=== PATIENT | male | born 1935 | race Caucasian/White ===

== ENCOUNTER 2023-01-22 11:16 | Outpatient (CLI) | payer MEDICARE, MEDICAID, SELFPAY ==
--- NOTE | 2023-01-22 11:27 | USCV_ITS ---
Marko Shepard Age: 87 Gender: M : 1935 Exam Date: 01/22/2023 11:47 Ordering Phys: SherleyYasmeen cuellar Technologist: JOHNNY Exam Location: [facility] [place] Indication: ACUTE CHRONIC HEART FAILURE BP: 134 / 74 HR: 96 Rhythm: Atrial fibrillation Technical Quality: Adequate MEASUREMENTS (Male / Female) Normal Values 2D ECHO LVOT Diameter 2.0 cm LV Ejection Fraction MOD 2C 28.8 % LV Ejection Fraction 2C AL 29.7 % LA Diameter 3.7 cm LA Width 4.2 cm LA Height 4.8 cm RA Width 3.6 cm RA Height 4.9 cm Aorta at Sinotubular Diameter 2.2 cm IVC Diameter 1.8 cm M-MODE Aortic Annulus Diameter 3.2 cm LA Ao Ratio MM 1.2 MV E Point Septal Separation 1.8 cm DOPPLER AV Peak Velocity 130.0 cm/s LVOT Peak Velocity 68.0 cm/s AV Area Cont Eq vti 1.8 cm squared AV Area Cont Eq pk 1.6 cm squared MV Peak Velocity 156.0 cm/s MV Area PHT 3.9 cm squared MV E' Velocity 77.0 cm/s Mitral E to MV E' Ratio 16.0 Mitral E to LV E' Lateral Ratio 17.6 Mitral E to LV E' Septal Ratio 14.7 TR Peak Velocity 271.2 cm/s TR Peak Gradient 29.4 mmHg TR Mean Velocity 253.0 cm/s TR Mean Gradient 27.4 mmHg TR Velocity Time Integral 112.8 cm Right Atrial Pressure 3.0 mmHg Pulmonary Artery Systolic Pressu 32.4 mmHg PV Peak Velocity 87.0 cm/s RV Acceleration Time 0.1 s RV Ejection Time 0.3 s RV AcT/ET 0.4 FINDINGS Left Ventricle Left ventricle appears dilated. LV systolic function is severely reduced with EF of 30-35%. Severe global hypokinesis seen. Diastolic function is indeterminate because of atrial fibrillation. Right Ventricle Right ventricle is hypokinetic. Right Atrium Normal in size Left Atrium Normal in size Mitral Valve Mild mitral annular calcification. Moderate mitral regurgitation. Aortic Valve Aortic valve is thickened. No aortic stenosis seen. Tricuspid Valve Mild tricuspid regurgitation. RVSP is 40 to 45 mmHg. This is consistent with mild pulmonary hypertension. Pulmonic Valve Not well-visualized Pericardium Grossly normal Aorta Normal in size IVC Appears to be normal CONCLUSIONS LV systolic function is severely reduced with EF of 30 to 35%. Diastolic function is indeterminate because of atrial fibrillation. RV is hypokinetic. Moderate mitral regurgitation Mild tricuspid regurgitation Mild pulmonary hypertension No comparison studies are available. Benny Thao MD (Electronically Signed) Final Date: 26 January 2023 16:46 S
== END 2023-01-22 11:17 | disposition home or self-care (01) ==
LOC: RAD 11:22
PROVIDERS: PCP Nurse Practitioner Family; Visit Provider Nurse Practitioner Family
DX: I50.9 Heart failure, unspecified (principal); R06.02 Shortness of breath; I08.1 Rheumatic disorders of both mitral and tricuspid valves
CPT/HCPCS: 93306

== ENCOUNTER → 2023-02-07 09:39 | Outpatient (BNVA) | payer MEDICARE, MEDICAID, SELFPAY | PROVIDERS: PCP Nurse Practitioner Family; Visit Provider Internal Medicine Cardiovascular Disease | DX: I25.10 Atherosclerotic heart disease of native coronary artery without angina pectoris (principal); I44.0 Atrioventricular block, first degree; I13.0 Hypertensive heart and chronic kidney disease with heart failure and stage 1 through stage 4 chronic kidney disease, or unspecified chronic kidney disease; I50.9 Heart failure, unspecified; I48.91 Unspecified atrial fibrillation; N18.9 Chronic kidney disease, unspecified; E78.5 Hyperlipidemia, unspecified; Z87.891 Personal history of nicotine dependence | CPT/HCPCS: 93005; 99205 ==

== ENCOUNTER 2023-02-17 20:30 | Inpatient (IN) | payer MEDICARE, MEDICAID, SELFPAY ==
[2023-02-17] VITALS (7 sets, daily range): BP systolic 123–151; BP diastolic 70–87; PULSE 95–113; RESP 22–29; TEMP 36.4–36.6; O2SAT 95–97; BMI 25.0
--- NOTE | 2023-02-17 20:42 | ECG_ITS ---
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 Measurements Intervals [place] Rate: 112 P: 204 TX: 238 QRS: 158 QRSD: 149 T: 29 QT: 385 QTc: 528 Interpretive Statements ECTOPIC ATRIAL TACHYCARDIA WITH FIRST DEGREE AV BLOCK WITH OCCASIONAL VENTRICULAR PREMATURE COMPLEXES RIGHT AXIS DEVIATION [QRS AXIS > 100] RIGHT BUNDLE BRANCH BLOCK [120+ ms QRS DURATION, UPRIGHT V1, 40+ ms S IN I/aVL/V4/V5/V6] POSSIBLE ANTEROSEPTAL MYOCARDIAL INFARCTION , OF INDETERMINATE AGE [30 ms Q WAVE INV3/V4, OR R < 0.2 mV IN V4] Compared to ECG 02/07/2023 09:47:19 First degree AV block now present.Right.axis deviation now present Myocardial infarct finding now present Sinus tachycardia no longer present.Indeterminate axis no longer present Electronically Signed On 02-18-2023 21:31:29 CDT by Wes Vyas M.D. [id number]
--- NOTE | 2023-02-17 20:44 | XRR_ITS ---
PROCEDURE INFORMATION: Exam: XR Chest Exam date and time: 02/17/2023 9:03 PM Age: 87 years old Clinical indication: Shortness of breath; Additional info: SOB TECHNIQUE: Imaging protocol: Radiologic exam of the chest. Views: 1 view. COMPARISON: No relevant prior studies available. FINDINGS: Lungs: Bibasilar atelectasis versus minimal infiltrate. Pleural spaces: Small bilateral pleural effusions. Heart/Mediastinum: Cardiomegaly and pulmonary vascular congestion. Bones/joints: Unremarkable. XR/XR chest 1V portable [id number] IMPRESSION: 1. Small bilateral pleural effusions. 2. Cardiomegaly and pulmonary vascular congestion. 3. Bibasilar atelectasis versus minimal infiltrate.
[2023-02-17 20:53] LABS: Basophils % 0.5 %; Eosinophils # 0.1 10^3/uL (0.0-0.8); Eosinophils % 2.7 %; Hematocrit 41.2 % (42.0-52.0); Hemoglobin 13.1 g/dL (11.7-16.6); Lymphocytes # 0.5 10^3/uL (0.8-4.8); Lymphocytes % 11.4 %; Mean Corpuscular HGB Conc 31.8 g/dL (30.0-36.0); Mean Corpuscular Hemoglobin 31.3 pg (28.0-34.0); Mean Corpuscular Volume 98.3 fl (80-94); Mean Platelet Volume 12.1 fL (7.4-10.4); Monocytes # 0.9 10^3/uL (0.2-0.9); Monocytes % 21.8 %; Neutrophils # 2.56 10^3/uL (1.8-7.7); Neutrophils % 63.4 %; Nucleated Red Blood Cells % 0 %; Platelet Count 153 10^3/cmm (130-400); Red Blood Count 4.19 10^6/uL (4.1-5.3); Red Cell Distribution Width 13.9 % (12.1-15.1)
[2023-02-17 21:12] LABS: Blood Gas Allen Test Pos; Blood Gas Sample Site Radial, right; Blood Gas Sample Type Arterial
[2023-02-17 21:18] LABS: Troponin(5th) Baseline 31 ng/L (0-15)
[2023-02-17 21:26] LABS: Alanine Aminotransferase 20 U/L (0-41); Albumin Level 4.2 g/dL (3.5-5.2); Alkaline Phosphatase 86 U/L (40-130); Anion Gap 18.2 (5-19); Aspartate Amino Transferase 21 U/L (0-40); Blood Urea Nitrogen 16 mg/dL (8-23); Calcium 9.5 mg/dL (8.5-10.5); Carbon Dioxide 24 mmol/L (22-29); Chloride 99 mmol/L (98-107); Creatinine Clr Calc Pharmacy 50.0788; Globulin 2.7 g/dL (1.3-4.6); Glucose 98 mg/dL (65-115); NT Pro B Type Natriuretic Pept 5635 pg/mL (0-450); Osmolality Calculated 285 mOsm/kg (285-295); Potassium 4.2 mmol/L (3.5-5.1); Sodium 137 mmol/L (136-145); Total Bilirubin 0.4 mg/dL (0.15-1.2); Total Protein 6.9 g/dL (6.6-8.7)
--- NOTE | 2023-02-17 21:52 | ED_ITS ---
HPI - SOB/Dyspnea General: Chief Complaint: Shortness of Breath/Dyspnea Stated Complaint: SOB Time Seen by Provider: 02/17/23 20:32 History of Present Illness: HPI Narrative: 87-year-old male with complex medical history including CHF, hypertension, atrial fibrillation and coronary disease. Emergency room with increased shortness of breath within the past few days. Patient initially presented to the [facility] for shortness of breath and called 911 upon returning home. Patient reveals increased shortness of breath with walking and laying flat. Patient was seen and evaluated by spray drier operator recently and his Lasix was increased to 40 mg twice daily. He denies any chest pain at the moment no cough, coughing up blood or vomiting blood no fever or chills. No sick contacts or recent foreign travel Associated symptoms: Deny extremity pain or fever(s) Review of Systems General: Reports: 10 or more systems reviewed and unremarkable except in HPI and below Const: Denies: fever(s), chills, body aches, change in appetite, change in weight, fatigue, malaise or night sweats Resp: Reports: dyspnea; Denies: productive cough, non-productive cough, wheezing, stridor, pain on inspi ration or change in phlegm color : Denies: flank pain, difficulty urinating, dysuria, urinary frequency, urinary urgency, urinary hesitancy, urinary dribbling, difficulty starting urination or change in urine stream Musc: Denies: neck pain, back pain, extremity pain, extremity swelling, joint pain, joint swelling or joint redness PFSH ED PFSH: Medical History (Updated 02/17/23 @ 22:01 by Genia Sanon MD) Atrial fibrillation BPH (benign prostatic hyperplasia) CAD (coronary artery disease) CHF (congestive heart failure) CKD (chronic kidney disease) Depression DJD (degenerative joint disease) OPAL (generalized anxiety disorder) History of alcohol abuse History of prostate cancer History of squamous cell carcinoma HTN (hypertension) Hyperlipidemia Insomnia Surgical History (Updated 02/07/23 @ 10:11 by Latonia Garrett MD) S/P coronary angiogram S/P coronary artery stent placement Family History Brother , Age 55 Diabetes Mother , 86 y/o Myocardial infarction Other CAD (coronary artery disease) Social History Smoking and tobacco status: former smoker Physical Exam Const: COMMON NORMALS: no acute distress, average body habitus, patient oriented x3, no limitations, healthy appearing, alert and well nourished Neck/C-Spine: COMMON NORMALS: full ROM, no lymphadenopathy, supple, no meningeal signs, no JVD, Thyroid normal and No carotid bruits THYROID: Thyroid normal Chest: COMMONS NORMALS: normal inspection of the chest Resp: COMMON NORMALS: percussion normal AUSCULTATION: rales, diminished lung sounds, no bronchial breath sounds, no bronchovesicular breath sounds, no egophony, no tactile fremitus and No rub present PERCUSSION: percussion normal Cardio: COMMON NORMALS: no JVD GI: COMMON NORMALS: Normal to inspection, nondistended, normoactive bowel sounds present, Soft to palpation, non-tender, No hepatosplenomegaly present, no masses and no bruits PALPATION: Yes Soft to palpation and Yes No hepatosplenomegaly present Extremity: COMMON NORMALS: normal to inspection, full ROM and no pedal edema (Trace edema noted); negative for no joint enlargement, negative for no clubbing, cyanosis or edema and negative for no calf tenderness Neuro: COMMON NORMALS: patient oriented x3 SENSORIUM/ORIENTATION: Yes alert MENINGEAL SIGNS: Yes no meningeal signs Course Vital Signs: Vital signs: Vital Signs Temperature 98 F 02/17/23 20:32 Pulse Rate 106 H 02/17/23 22:04 Respiratory Rate 22 H 02/17/23 21:30 Blood Pressure 123/74 02/17/23 22:04 Pulse Oximetry 95 02/17/23 21:30 Oxygen Delivery Me thod Nasal Cannula 02/17/23 21:30 Oxygen Flow Rate 2 02/17/23 21:30 MDM - SOB/Dyspnea Medical Decision Making Patient was made comfortable emergency room. She was given IV Lasix. Aspirin and nitro. X-ray was done and reviewed by . Ranjana x-ray finding with the patient and family at bedside. Ranjana patient with the hospitalist and the need for admission. Differential Diagnosis Likely acute exacerbation of chronic obstructive airways disease, congestive heart failure, community acquired pneumonia, asthma with exacerbation and pulmonary embolism Lab Data 02/17/23 20:45 02/17/23 20:45 Labs/Radiology: Radiology Impressions Chest X-Ray 02/17/23 20:44 IMPRESSION: 1. Small bilateral pleural effusions. 2. Cardiomegaly and pulmonary vascular congestion. 3. Bibasilar atelectasis versus minimal infiltrate. Laboratory Results WBC 4.0 10^3/uL (4.0-10.0) 02/17/23 20:45 RBC 4.19 10^6/uL (4.1-5.3) 02/17/23 20:45 Hgb 13.1 g/dL (11.7-16.6) 02/17/23 20:45 Hct 41.2 % (42.0-52.0) L 02/17/23 20:45 MCV 98.3 fl (80-94) H 02/17/23 20:45 MCH 31.3 pg (28.0-34.0) 02/17/23 20:45 MCHC 31.8 g/dL (30.0-36.0) 02/17/23 20:45 RDW 13.9 % (12.1-15.1) 02/17/23 20:45 Plt Count 153 10^3/cmm (130-400) 02/17/23 20:45 MPV 12.1 fL (7.4-10.4) H 02/17/23 20:45 Neut % (Auto) 63.4 % 02/17/23 20:45 Lymph % (Auto) 11.4 % 02/17/23 20:45 [place] % (Auto) 21.8 % 02/17/23 20:45 Eos % (Auto) 2.7 % 02/17/23 20:45 Baso % (Auto) 0.5 % 02/17/23 20:45 Neut # (Auto) 2.56 10^3/uL (1.8-7.7) 02/17/23 20:45 Lymph # (Auto) 0.5 10^3/uL (0.8-4.8) L 02/17/23 20:45 [place] # (Auto) 0.9 10^3/uL (0.2-0.9) 02/17/23 20:45 Eos # (Auto) 0.1 10^3/uL (0.0-0.8) 02/17/23 20:45 Baso # (Auto) 0.0 10^3/uL (0.0-0.1) 02/17/23 20:45 Nucleated RBC % (auto) 0 % 02/17/23 20:45 Nucleated RBCs # 0.0 /100WBC 02/17/23 20:45 Specimen Type Arterial 02/17/23 20:44 Sample Site Radial, right 02/17/23 20:44 ABG pH 7.35 (7.35-7.45) 02/17/23 20:44 ABG pCO2 40.6 mmHg (35-45) 02/17/23 20:44 ABG pO2 66.4 mmHg (80.0-100.0) L 02/17/23 20:44 ABG HCO3 22.3 mmol/L (22-26) 02/17/23 20:44 ABG Base Excess -3.1 mmol/L (-2.0-2.0) L 02/17/23 20:44 Corona Test Pos 02/17/23 20:44 Hematocrit 28.6 % (42-52) L 02/17/23 20:44 Hgb O2 Saturation 88.3 % (95-100) L 02/17/23 20:44 Carboxyhemoglobin 0.5 %THgb (0.4-20.1) 02/17/23 20:44 Methemoglobin 2.4 % (0.4-1.5) H 02/17/23 20:44 Total Hemoglobin 9.3 g/dL (14-18) L 02/17/23 20:44 O2 Delivery Device None 02/17/23 20:44 O2 Liters/Min 2.0 % 02/17/23 20:44 FiO2 21.0 % 02/17/23 20:44 Linen Grader ID [email or web address] 02/17/23 20:44 Sodium 137 mmol/L (136-145) 02/17/23 20:45 Potassium 4.2 mmol/L (3.5-5.1) 02/17/23 20:45 Chloride 99 mmol/L (98-107) 02/17/23 20:45 Carbon Dioxide 24 mmol/L (22-29) 02/17/23 20:45 Anion Gap 18.2 (5-19) 02/17/23 20:45 BUN 16 mg/dL (8-23) 02/17/23 20:45 Creatinine 1.2 mg/dL (0.7-1.2) 02/17/23 20:45 GFR Calculation Not Reportable 02/17/23 20:45 Glucose 98 mg/dL (65-115) 02/17/23 20:45 Calculated Osmolality 285 mOsm/kg (285-295) 02/17/23 20:45 Calcium 9.5 mg/dL (8.5-10.5) 02/17/23 20:45 Total Bilirubin 0.4 mg/dL (0.15-1.2) 02/17/23 20:45 AST 21 U/L (0-40) 02/17/23 20:45 ALT 20 U/L (0-41) 02/17/23 20:45 Alkaline Phosphatase 86 U/L (40-130) 02/17/23 20:45 Troponin T Baseline 31 ng/L (0-15) H 02/17/23 20:45 NT-Pro-B Natriuret Pep 5635 pg/mL (0-450) H 02/17/23 20:45 Total Protein 6.9 g/dL (6.6-8.7) 02/17/23 20:45 Albumin 4.2 g/dL (3.5-5.2) 02/17/23 20:45 Globulin 2.7 g/dL (1.3-4.6) 02/17/23 20:45 EKG Data EKG 1: Interpretation: Tacky arrhythmia rate of 112 right bundle branch block semester and T wave changes QRS duration 149 PT 385 NM interval 238 Critical Care Time Critical Care Time: Critical Care Time: Yes Total Critical Care Time: 40 Attestation: Time spent reviewing with patient previous labs and test. Spent discussing patient with the hospitalist and family. Time spent to recheck patient and to reevaluate patient. 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
--- NOTE | 2023-02-17 22:00 | PC.NURSE ---
Notified MD that pt is not having chest pain or tightness. MD said to administer Nitro and aspirin.
[2023-02-17] MEDS: nitroglycerin 1 gm/inch oint Pkt 0.5 INCH TOPICAL (22:04)
[2023-02-17] MEDS: aspirin 325 mg Tablet PO (22:06)
--- NOTE | 2023-02-17 22:23 | PC.NURSE ---
Addendum entered by Sarita Gutiérrez RN 02/17/23 22:27: Cardiac rhythm change Original Note: Notified MD of cardiac rhythm since nitro paste administered. Asked MD if I should obtain an EKG. MD said no EKG and to leave nitro paste on. No new orders received.
[2023-02-17 22:46] LABS: ABG PCO2 40.6 mmHg (35-45); ABG PH Result 7.35 (7.35-7.45); Arterial Blood Gas Hematocrit 28.6 % (42-52); Base Excess ABG -3.1 mmol/L (-2.0-2.0); Carboxyhemoglobin 0.5 %THgb (0.4-20.1); HCO3 ABG 22.3 mmol/L (22-26); HGB O2 Sat 88.3 % (95-100); Methemoglobin 2.4 % (0.4-1.5); PO2 ABG 66.4 mmHg (80.0-100.0); Total Hemoglobin 9.3 g/dL (14-18)
[2023-02-17 23:25] LABS: Troponin 5 2HR 31.99 ng/L (0-15)
[2023-02-17 23:26] LABS: Troponin 5 2HR Delta 0.99 ABS# (0-10)
[2023-02-18] VITALS (9 sets, daily range): BP systolic 106–132; BP diastolic 54–82; PULSE 77–100; RESP 16–24; TEMP 36.4–36.6; O2SAT 94–98
--- NOTE | 2023-02-18 00:39 | PM.HP ---
Providers/Chief Complaint Admitting Physician: Janeth Jaramillo MD Primary Care Provider: Yasmeen Lepe Chief Complaint: SOB History of Present Illness Marko Shepard is a 87 year old male with PMH CAD, CHF, HTN. He recently established care with cardiology as outpatient on 02/07/23. better he has been experiencing increasing shortness of breath over the past few weeks along with lower extremity edema and exertional shortness of breath. He was recently started on Lasix and has been compliant with his treatment. It appears he was being planned for a cardiac stress test as an outpatient, this is yet to happen. Denies any fever chills cough or expectoration. He is currently on supplemental O2 at 2 L/min Review of Systems General: Reports: 10 or more systems reviewed and unremarkable except in HPI and below Const: Denies: fever(s), chills or body aches Eyes: Denies: change in vision, blurry vision or photophobia ENMT: Reports: hoarseness; Denies: throat pain, enlarged tonsils, odynophagia or nasal congestion Card: Denies: chest pain, palpitations, irregular heart rhythm, edema, swelling of feet/ankles, lightheadedness, pre-syncope, dyspnea on exertion or orthopnea Resp: Denies: dyspnea, productive cough, non-productive cough, wheezing, stridor, pain on inspiration, change in phlegm color, hemoptysis or chest congestion GI: Denies: abdominal pain, nausea, vomiting, hematemesis, coffee ground emesis, dysphagia, heartburn, diarrhea, constipation, GI cramping, change in stool character, hematochezia or melena : Denies: flank pain, dysuria, urinary frequency, urinary urgency, urinary hesitancy or hematuria Musc: Denies: neck pain, back pain, extremity pain, joint swelling, joint warmth or deformity Neuro: Denies: headache(s), numbness in extremities, weakness in extremities, sensory changes, difficulty walking, frequent falls, dizziness, vertigo, behavioral changes, Slurred speech present or seizure-like activity Psych: Denies: anxiety, depression, suicidal ideation or homicidal ideation Endo: Denies: polyuria, polydipsia, tired all the time, cold intolerance or hot flashes Gera/Lymph: Denies: easy bruising or easy bleeding Medications/Allergies Home Medications Medication Instructions Recorded Confirmed Last Taken Type albuterol sulfate 90 mcg/actuation 2 puff inhalation Q6H PRN 02/07/23 Unknown History aerosol inhaler alprazolam 0.25 mg tablet 0.25 mg PO BID PRN 02/07/23 Unknown History aspirin 81 mg tablet,delayed 81 mg PO DAILY 02/07/23 Unknown History release (Adult Low Dose Aspirin) cetirizine 10 mg tablet (Allergy 10 mg PO DAILY PRN 02/07/23 Unknown History Relief (cetirizine)) diltiazem HCl 30 mg tablet 30 mg PO TID PRN 02/07/23 Unknown History fluticasone propionate 50 1 spray intranasal DAILY PRN 02/07/23 02/17/23 Unknown History mcg/actuation nasal Allergy Symptoms spray,suspension (Flonase Allergy Relief) furosemide 40 mg tablet 40 mg PO DIRECTED #90 tabs 02/07/23 02/17/23 Unknown Rx latanoprost 0.005 % eye drops 1 drp ophthalmic (eye) DAILY 02/07/23 02/17/23 Unknown History meloxicam 15 mg tablet 15 mg PO DAILY 02/07/23 02/17/23 Unknown History multivitamin 1 tab PO DAILY 02/07/23 02/17/23 Unknown History potassium chloride 20 mEq 20 meq PO DIRECTED #90 tabs 02/07/23 02/17/23 Unknown Rx tablet,extended release tamsulosin 0.4 mg capsule 0.8 mg PO DAILY 02/07/23 02/17/23 Unknown History vit C 226 mg-vit E 90 mg-copper 1 cap PO DAILY 02/07/23 02/17/23 Unknown History 0.8 mg-zinc oxide-lutein 5 mg capsule (PreserVision Lutein) Allergies Allergy/AdvReac Type Severity Reaction Status Date / Time celecoxib Allergy Unknown Unknown Verified 02/07/23 07:40 cholestyramine Allergy Unknown Unknown Verified 02/07/23 07:40 doxepin Allergy Unknown Unknown Verified 02/07/23 07:40 ezetimibe Allergy Unknown Unknown Verified 02/07/23 07:40 metaxalone Allergy Unknown Unknown Verified 02/07/23 07:40 niacin Allergy Unknown Unknown Verified 02/07/23 07:40 simvastatin Allergy Unknown Unknown Verified 02/07/23 07:40 alirocumab AdvReac Mild ADV-Weaknes Verified 02/07/23 07:40 s evolocumab AdvReac Mild ADV-Weaknes Verified 02/07/23 07:40 s rosuvastatin AdvReac Mild ADR-Cramping Verified 02/07/23 07:40 of the Muscles PFSH Acute PFSH: Medical History Atrial fibrillation BPH (benign prostatic hyperplasia) CAD (coronary artery disease) CHF (congestive heart failure) CKD (chronic kidney disease) Depression DJD (degenerative joint disease) OPAL (generalized anxiety disorder) History of alcohol abuse History of prostate cancer History of squamous cell carcinoma HTN (hypertension) Hyperlipidemia Insomnia Surgical History S/P coronary angiogram S/P coronary artery stent placement Family History Brother , Age 55 Diabetes Mother , 86 y/o Myocardial infarction Other CAD (coronary artery disease) Social History Smoking and tobacco status: former smoker Vitals/I&O/Wt Last Vital Signs Temp 97.6 F 02/17/23 23:15 Pulse 95 02/17/23 23:15 Resp 25 H 02/17/23 23:15 BP 151/83 02/17/23 23:15 Pulse Ox 97 02/17/23 23:15 O2 Del Method Nasal Cannula 02/17/23 23:15 O2 Flow Rate 2 02/17/23 23:15 Weight last 48 hrs Weight 83.915 kg Physical Exam Narrative: General: No acute distress, AO x3 HEENT: PERRLA, pupils bilaterally equal and reactive, pallors not present Chest: Rales to auscultation B/L CVS: S1-S2 regular, no murmurs, no tachycardia, no gallops, no rubs Abdomen: Soft, nontender, no organomegaly, bowel sounds present Neuro: No focal deficits, no facial deformity, AO x3, power 5/5 in all limbs Data 02/17/23 20:45 02/17/23 20:45 Other Labs: Radiology Impressions Chest X-Ray 02/17/23 20:44 IMPRESSION: 1. Small bilateral pleural effusions. 2. Cardiomegaly and pulmonary vascular congestion. 3. Bibasilar atelectasis versus minimal infiltrate. Laboratory Results WBC 4.0 10^3/uL (4.0-10.0) 02/17/23 20:45 RBC 4.19 10^6/uL (4.1-5.3) 02/17/23 20:45 Hgb 13.1 g/dL (11.7-16.6) 02/17/23 20:45 Hct 41.2 % (42.0-52.0) L 02/17/23 20:45 MCV 98.3 fl (80-94) H 02/17/23 20:45 MCH 31.3 pg (28.0-34.0) 02/17/23 20:45 MCHC 31.8 g/dL (30.0-36.0) 02/17/23 20:45 RDW 13.9 % (12.1-15.1) 02/17/23 20:45 Plt Count 153 10^3/cmm (130-400) 02/17/23 20:45 MPV 12.1 fL (7.4-10.4) H 02/17/23 20:45 Neut % (Auto) 63.4 % 02/17/23 20:45 Lymph % (Auto) 11.4 % 02/17/23 20:45 [place] % (Auto) 21.8 % 02/17/23 20:45 Eos % (Auto) 2.7 % 02/17/23 20:45 Baso % (Auto) 0.5 % 02/17/23 20:45 Neut # (Auto) 2.56 10^3/uL (1.8-7.7) 02/17/23 20:45 Lymph # (Auto) 0.5 10^3/uL (0.8-4.8) L 02/17/23 20:45 [place] # (Auto) 0.9 10^3/uL (0.2-0.9) 02/17/23 20:45 Eos # (Auto) 0.1 10^3/uL (0.0-0.8) 02/17/23 20:45 Baso # (Auto) 0.0 10^3/uL (0.0-0.1) 02/17/23 20:45 Nucleated RBC % (auto) 0 % 02/17/23 20:45 Nucleated RBCs # 0.0 /100WBC 02/17/23 20:45 Specimen Type Arterial 02/17/23 20:44 Sample Site Radial, right 02/17/23 20:44 ABG pH 7.35 (7.35-7.45) 02/17/23 20:44 ABG pCO2 40.6 mmHg (35-45) 02/17/23 20:44 ABG pO2 66.4 mmHg (80.0-100.0) L 02/17/23 20:44 ABG HCO3 22.3 mmol/L (22-26) 02/17/23 20:44 ABG Base Excess -3.1 mmol/L (-2.0-2.0) L 02/17/23 20:44 Corona Test Pos 02/17/23 20:44 Hematocrit 28.6 % (42-52) L 02/17/23 20:44 Hgb O2 Saturation 88.3 % (95-100) L 02/17/23 20:44 Carboxyhemoglobin 0.5 %THgb (0.4-20.1) 02/17/23 20:44 Methemoglobin 2.4 % (0.4-1.5) H 02/17/23 20:44 Total Hemoglobin 9.3 g/dL (14-18) L 02/17/23 20:44 O2 Delivery Device None 02/17/23 20:44 O2 Liters/Min 2.0 % 02/17/23 20:44 FiO2 21.0 % 02/17/23 20:44 Case Making Machine Operator ID [email or web address] 02/17/23 20:44 Sodium 137 mmol/L (136-145) 02/17/23 20:45 Potassium 4.2 mmol/L (3.5-5.1) 02/17/23 20:45 Chloride 99 mmol/L (98-107) 02/17/23 20:45 Carbon Dioxide 24 mmol/L (22-29) 02/17/23 20:45 Anion Gap 18.2 (5-19) 02/17/23 20:45 BUN 16 mg/dL (8-23) 02/17/23 20:45 Creatinine 1.2 mg/dL (0.7-1.2) 02/17/23 20:45 GFR Calculation Not Reportable 02/17/23 20:45 Glucose 98 mg/dL (65-115) 02/17/23 20:45 Calculated Osmolality 285 mOsm/kg (285-295) 02/17/23 20:45 Calcium 9.5 mg/dL (8.5-10.5) 02/17/23 20:45 Total Bilirubin 0.4 mg/dL (0.15-1.2) 02/17/23 20:45 AST 21 U/L (0-40) 02/17/23 20:45 ALT 20 U/L (0-41) 02/17/23 20:45 Alkaline Phosphatase 86 U/L (40-130) 02/17/23 20:45 Troponin T Baseline 31 ng/L (0-15) H 02/17/23 20:45 Troponin T 120 Minute 31.99 ng/L (0-15) H 02/17/23 22:45 Delta Troponin T 0.99 ABS# (0-10) 02/17/23 22:45 Troponin T Hi Sens 6Hr 36.27 ng/L (0-15) H 02/18/23 02:36 Troponin T Hi Sens 6Hr Delta 5.27 ng/L (0-12) 02/18/23 02:36 NT-Pro-B Natriuret Pep 5635 pg/mL (0-450) H 02/17/23 20:45 Total Protein 6.9 g/dL (6.6-8.7) 02/17/23 20:45 Albumin 4.2 g/dL (3.5-5.2) 02/17/23 20:45 Globulin 2.7 g/dL (1.3-4.6) 02/17/23 20:45 ABG Interpretation 1: 02/17/23 20:44 ABG pH 7.35 ABG pCO2 40.6 ABG pO2 66.4 L ABG HCO3 22.3 ABG Base Excess -3.1 L A&P Assessment and plan (1) CHF (congestive heart failure): Patient presenting with progressively increasing dyspnea on exertion, orthopnea, clinically appears to be in CHF. Acute on chronic systolic CHF exacerbation. BNP elevated, chest x-ray showing bilateral infiltrates appearing to be pulmonary vascular congestion and bilateral small effusions. Start patient on Lasix 40 mg IV every 12 hours Recent echocardiogram from January 22, 2023 showed severely reduced EF of 30 to 35%. RV is hypokinetic. Mild mitral regurgitation and tricuspid regurg regurgitation along with mild pulmonary hypertension. EKG today without acute ST-T wave changes. QTc prolonged at 528. Troponin baseline at 31, 2 hours at 31.99 and 6 hours at 36.27. Patient was planned for an outpatient stress test however this has not yet happened. Supplemental O2 to keep saturation greater than 92% Monitor SHANIQUE's and renal function while on IV diuretics. (2) Elevated troponin: Suspect related to CHF May consider completing stress test while he is admitted, however would need to be optimized from a CHF perspective first. Attestations Medical Necessity Statement*: Anticipate greater than 2 midnight admission for management of acute on chronic systolic CHF, need for IV diuresis Coding Level of Care Code Acute Code for Chg Fwd Moderate MDM includes number and complexity of problems actively addressed during encounter, amount and/or complexity of data reviewed/ordered and described risk of complication, morbidity or mortality of management as documented Diagnoses CHF (congestive heart failure) I50.9 Elevated troponin R77.8
[2023-02-18] MEDS: enoxaparin 40 mg/0.4 mL Syringe SUBCUT ×2 (01:24→23:45)
[2023-02-18] MEDS: ALPRAZolam 0.5 mg Tablet 0.25 MG PO ×3 (01:24→23:39)
[2023-02-18] MEDS: FUROsemide 10 mg/mL SDV 4mL 40 MG IVP ×2 (01:25→17:38)
[2023-02-18 04:38] LABS: Troponin 5 6HR 36.27 ng/L (0-15); Troponin 5 6HR Delta 5.27 ng/L (0-12)
[2023-02-18] MEDS: pantoprazole DR 40 mg Tablet PO (08:35)
[2023-02-18] MEDS: aspirin 81 mg EC Tablet PO (08:35)
[2023-02-18] MEDS: tamsulosin 0.4 mg Capsule 0.8 MG PO (08:35)
--- NOTE | 2023-02-18 08:44 | USCV_ITS ---
Marko Shepard Age: 87 Gender: M : 1935 Exam Date: 02/18/2023 11:46 Ordering Phys: Sulaiman Godinez MD Technologist: Exam Location: [facility] Indication: EF BP: / HR: 98 Rhythm: Sinus Technical Quality: Adequate MEASUREMENTS (Male / Female) Normal Values 2D ECHO LV Diastolic Diameter PLAX 5.9 cm 4.2 - 5.9 / 3.9 - 5.3 cm LV Systolic Diameter PLAX 5.1 cm IVS Diastolic Thickness 1.1 cm 0.6 - 1.0 / 0.6 - 0.9 cm IVS Systolic Thickness 1.6 cm LVPW Diastolic Thickness 0.9 cm 0.6 - 1.0 / 0.6 - 0.9 cm LVPW Systolic Thickness 1.4 cm LVOT Diameter 2.0 cm LV Ejection Fraction 2D Teich 20.9 % LA Diameter 3.9 cm M-MODE Aortic Annulus Diameter 3.3 cm LA Ao Ratio MM 1.4 FINDINGS Left Ventricle Mildly dilated left ventricular cavity size. Severely decreased left ventricular systolic function. Left ventricular ejection fraction is estimated at 25-30 %. Global left ventricular hypokinesis. Abnormal septal motion consistent with conduction abnormality. Right Ventricle Normal right ventricular size and systolic function. Right Atrium Upper normal right atrial size. Left Atrium Mildly increased left atrial size. Mitral Valve Moderate mitral annular calcification. Mildly thickened mitral valve. No mitral valve stenosis. Mild mitral valve regurgitation. Aortic Valve Aortic valve not well visualized. Tricuspid Valve Structurally normal tricuspid valve. Pulmonic Valve Pulmonic valve not well visualized. Pericardium No pericardial effusion. Aorta Normal size aortic root and proximal ascending aorta. IVC Inferior vena cava not visualized. CONCLUSIONS 1. Mildly dilated left ventricular cavity size. Severely decreased left ventricular systolic function. Left ventricular ejection fraction is estimated at 30 %. Global left ventricular hypokinesis. Abnormal septal motion consistent with conduction abnormality. 2. When compared to study dated 01/22/23, there has been no significant change. Latonia Garrett MD (Electronically Signed) Final Date: 19 February 2023 12:17 S
--- NOTE | 2023-02-18 09:32 | PC.PHAR ---
pt states he takes care of his own medications-pt states he takes diltiazem 30mg daily prn pt states not taken for 3 weeks ext shows last filled 30mg tid 09/18/22 30d/s-pt states for a month he hasnt taken iron daily and fish oil daily-notes are made in the pharmacy comment
[2023-02-18 09:35] LABS: Magnesium 2.3 mg/dL (1.7-2.3)
--- NOTE | 2023-02-18 16:50 | P.PN_ITS ---
Subjective Subjective: - Patient was seen this morning -Family members at bedside -Spoke to family members in detail, they tell me that he has been hospitalized at [facility], he has been feeling more short of breath recently -Denies any chest pain, denies any palpitations -Does report orthopnea, paroxysmal nocturnal dyspnea, shortness of breath -He tells me he does not want to have a Young catheter in place -He tells me that he has had 2 stents placed in his heart, when he was at [facility] this was a few years ago -That he also had a evaluation at [facility] -He does not currently he cannot lie flat, Vitals/I&O/Wt Last Vital Signs Temp 97.5 F L 02/18/23 04:00 Pulse 95 02/18/23 14:00 Resp 21 H 02/18/23 12:00 BP 111/54 02/18/23 12:00 Pulse Ox 97 02/18/23 12:00 O2 Del Method Nasal Cannula 02/18/23 12:00 O2 Flow Rate 2 02/18/23 08:00 02/18/23 02/18/23 02/18/23 06:59 14:59 22:59 Intake Total 840 / 840 Output Total 1200 / 1200 350 / 350 Balance -1200 / -1200 490 / 490 Weight last 48 hrs Weight 83.915 kg Physical Exam Const: COMMON NORMALS: no acute distress and patient oriented x3 Resp: COMMON NORMALS: normal respiratory effort, No retractions and No use of accessory muscles AUSCULTATION: crackles Cardio: COMMON NORMALS: regular rate, regular rhythm, S1 normal heart sound present and S2 normal heart sound present RATE: regular rate RHYTHM: regular rhythm HEART SOUNDS: S1 normal heart sound present and S2 normal heart sound present GI: COMMON NORMALS: Normal to inspection, nondistended, normoactive bowel sounds present, non-tender and no bruits Extremity: COMMON NORMALS: no pedal edema Neuro: COMMON NORMALS: patient oriented x3 Psych: COMMON NORMALS: mental status grossly normal Data 02/17/23 20:45 02/17/23 20:45 A&P Assessment and plan (1) CHF (congestive heart failure): Patient presenting with progressively increasing dyspnea on exertion, orthopnea, clinically appears to be in CHF. Acute on chronic systolic CHF exacerbation. BNP elevated, chest x-ray showing bilateral infiltrates appearing to be pulmonary vascular congestion and bilateral small effusions. Daily dose Lasix, 40 mg IV push Lasix today Recent echocardiogram from January 22, 2023 showed severely reduced EF of 30 to 35%. RV is hypokinetic. Mild mitral regurgitation and tricuspid regurg regurgitation along with mild pulmonary hypertension. EKG today without acute ST-T wave changes. QTc prolonged at 528. Troponin baseline at 31, 2 hours at 31.99 and 6 hours at 36.27. Patient was planned for an outpatient stress test however this has not yet happened. Supplemental O2 to keep saturation greater than 92% Monitor SHANIQUE's and renal function while on IV diuretics. (2) Elevated troponin: Suspect related to CHF However with will consider stress testing once clinically improved from CHF (3) Systolic CHF, acute on chronic: Plan Plan for today up out of bed, continue to diurese, repeat cardiac echocardiogram telemetry monitoring, monitor for chest pain Attestations Medical Necessity Statement*: Patient requires hospitalization for CHF exacerbation, systolic, with NSTEMI Diagnoses CHF (congestive heart failure) I50.9 Elevated troponin R77.8 Systolic CHF, acute on chronic I50.23
[2023-02-18] MEDS: potassium chloride ER 20 mEq Tablet PO (17:37)
[2023-02-19] VITALS (107 sets, daily range): BP systolic 109–127; BP diastolic 54–79; PULSE 58–105; RESP 0–27; TEMP 36.4–36.6; O2SAT 77–100
[2023-02-19 03:57] LABS: Basophils % 0.5 %; Eosinophils # 0.2 10^3/uL (0.0-0.8); Hematocrit 37.7 % (42.0-52.0); Hemoglobin 11.9 g/dL (11.7-16.6); Lymphocytes # 0.6 10^3/uL (0.8-4.8); Lymphocytes % 15.6 %; Mean Corpuscular HGB Conc 31.6 g/dL (30.0-36.0); Mean Corpuscular Hemoglobin 31.2 pg (28.0-34.0); Monocytes # 1.2 10^3/uL (0.2-0.9); Monocytes % 29.5 %; Neutrophils % 49.7 %; Nucleated Red Blood Cells % 0 %; Platelet Count 147 10^3/cmm (130-400); Red Blood Count 3.81 10^6/uL (4.1-5.3); Red Cell Distribution Width 13.8 % (12.1-15.1)
[2023-02-19 04:19] LABS: Alanine Aminotransferase 15 U/L (0-41); Alkaline Phosphatase 73 U/L (40-130); Aspartate Amino Transferase 13 U/L (0-40); Chloride 105 mmol/L (98-107); Glucose 107 mg/dL (65-115); Potassium 4.1 mmol/L (3.5-5.1); Sodium 144 mmol/L (136-145)
[2023-02-19 04:23] LABS: NT Pro B Type Natriuretic Pept 4553 pg/mL (0-450)
[2023-02-19 04:58] LABS: Anion Gap 15.1 (5-19); Carbon Dioxide 28 mmol/L (22-29)
[2023-02-19 05:22] LABS: Blood Urea Nitrogen 17 mg/dL (8-23); Calcium 8.9 mg/dL (8.5-10.5); Osmolality Calculated 300 mOsm/kg (285-295); Thyroid Stimulating Hormone 1.76 uIU/mL (0.27-4.20); Total Bilirubin 0.4 mg/dL (0.15-1.2)
[2023-02-19 05:37] LABS: Globulin 1.9 g/dL (1.3-4.6); Total Protein 5.9 g/dL (6.6-8.7)
[2023-02-19] MEDS: pantoprazole DR 40 mg Tablet PO (08:53)
[2023-02-19] MEDS: potassium chloride ER 20 mEq Tablet PO (08:53)
[2023-02-19] MEDS: aspirin 81 mg EC Tablet PO (08:53)
[2023-02-19] MEDS: FUROsemide 10 mg/mL SDV 4mL 40 MG IVP ×2 (08:53→17:52)
[2023-02-19] MEDS: tamsulosin 0.4 mg Capsule 0.8 MG PO (08:54)
[2023-02-19] MEDS: morphine 4 mg/mL SDV 1 mL 2 MG IVP (08:54)
[2023-02-19] MEDS: metOLazone 5 MG Tablet PO (08:54)
--- NOTE | 2023-02-19 16:15 | P.PN_ITS ---
Subjective Subjective: Patient was seen this morning he is very upset that he did not get his Xanax overnight, denies any chest pain does report shortness of breath, he thinks he can lie flat more, he is agreeable to stay the night and potentially do stress test tomorrow morning is agreeable to further diuresis, Vitals/I&O/Wt Last Vital Signs Temp 97.8 F 02/19/23 08:00 Pulse 81 02/19/23 11:11 Resp 16 02/19/23 11:11 BP 113/62 02/19/23 11:11 Pulse Ox 94 02/19/23 11:11 O2 Del Method Nasal Cannula 02/19/23 11:11 O2 Flow Rate 3 02/19/23 03:52 02/19/23 02/19/23 02/19/23 06:59 14:59 22:59 Intake Total 600 / 600 Output Total 200 / 0 1025 / 1025 650 / 1675 Balance -200 / -730 -425 / -425 -650 / -1075 Weight last 48 hrs Weight 83.915 kg Physical Exam Const: COMMON NORMALS: no acute distress and patient oriented x3 Resp: COMMON NORMALS: normal respiratory effort, No retractions, No use of accessory muscles and clear to auscultation bilaterally AUSCULTATION: clear to auscultation bilaterally Cardio: COMMON NORMALS: regular rate, regular rhythm, S1 normal heart sound present and S2 normal heart sound present RATE: regular rate RHYTHM: regular rhythm HEART SOUNDS: S1 normal heart sound present and S2 normal heart sound present GI: COMMON NORMALS: Normal to inspection, nondistended, normoactive bowel sounds present Extremity: COMMON NORMALS: no pedal edema Neuro: COMMON NORMALS: patient oriented x3 Psych: COMMON NORMALS: mental status grossly normal Data 02/19/23 03:42 02/19/23 03:42 A&P Assessment and plan (1) CHF (congestive heart failure): Patient presenting with progressively increasing dyspnea on exertion, orthopnea, clinically appears to be in CHF. Acute on chronic systolic CHF exacerbation. BNP elevated, chest x-ray showing bilateral infiltrates appearing to be pulmonary vascular congestion and bilateral small effusions. Daily dose Lasix, 40 mg IV with metlazone, will consider another lasix 40mg ivp in the evening Recent echocardiogram from January 22, 2023 showed severely reduced EF of 30 to 35%. RV is hypokinetic. Mild mitral regurgitation and tricuspid regurg regurgi tation along with mild pulmonary hypertension. EKG today without acute ST-T wave changes. QTc prolonged at 528. Troponin baseline at 31, 2 hours at 31.99 and 6 hours at 36.27. Patient was planned for an outpatient stress test however this has not yet happened. Supplemental O2 to keep saturation greater than 92% Monitor SHANIQUE's and renal function while on IV diuretics. (2) Elevated troponin: Suspect related to CHF N.p.o. midnight, cardiac stress test tomorrow morning (3) Systolic CHF, acute on chronic: Plan Plan for today up out of bed, continue to diurese, repeat cardiac echocardiogram telemetry monitoring, monitor for chest pain Attestations Medical Necessity Statement*: Patient requires hospitalization for CHF exacerbation, systolic, undergoing cardiac stress test tomorrow morning Diagnoses CHF (congestive heart failure) I50.9 Elevated troponin R77.8 Systolic CHF, acute on chronic I50.23
[2023-02-20] VITALS (60 sets, daily range): BP systolic 105–138; BP diastolic 53–80; PULSE 71–101; RESP 9–37; TEMP 36.3–36.9; O2SAT 89–98
[2023-02-20] MEDS: ALPRAZolam 0.5 mg Tablet 0.25 MG PO ×2 (00:26→21:48)
[2023-02-20] MEDS: enoxaparin 40 mg/0.4 mL Syringe SUBCUT ×2 (00:27→21:48)
[2023-02-20 04:36] LABS: Basophils % 0.8 %; Eosinophils # 0.2 10^3/uL (0.0-0.8); Eosinophils % 5.1 %; Hematocrit 43.2 % (42.0-52.0); Hemoglobin 14.2 g/dL (11.7-16.6); Lymphocytes # 0.6 10^3/uL (0.8-4.8); Lymphocytes % 14.4 %; Mean Corpuscular HGB Conc 32.9 g/dL (30.0-36.0); Mean Corpuscular Hemoglobin 31.7 pg (28.0-34.0); Mean Corpuscular Volume 96.4 fl (80-94); Mean Platelet Volume 11.6 fL (7.4-10.4); Monocytes % 24.6 %; Neutrophils # 2.13 10^3/uL (1.8-7.7); Neutrophils % 54.6 %; Nucleated Red Blood Cells % 0 %; Platelet Count 152 10^3/cmm (130-400); Red Blood Count 4.48 10^6/uL (4.1-5.3); Red Cell Distribution Width 13.7 % (12.1-15.1); White Blood Count 3.9 10^3/uL (4.0-10.0)
[2023-02-20 04:54] LABS: Alanine Aminotransferase 16 U/L (0-41); Albumin Level 4.7 g/dL (3.5-5.2); Alkaline Phosphatase 86 U/L (40-130); Anion Gap 13.7 (5-19); Aspartate Amino Transferase 13 U/L (0-40); Blood Urea Nitrogen 20 mg/dL (8-23); Calcium 10.3 mg/dL (8.5-10.5); Carbon Dioxide 34 mmol/L (22-29); Chloride 98 mmol/L (98-107); Creatinine Clr Calc Pharmacy 50.0788; Globulin 2.4 g/dL (1.3-4.6); Glucose 89 mg/dL (65-115); Magnesium 2.2 mg/dL (1.7-2.3); Osmolality Calculated 296 mOsm/kg (285-295); Potassium 3.7 mmol/L (3.5-5.1); Sodium 142 mmol/L (136-145); Total Bilirubin 0.5 mg/dL (0.15-1.2); Total Protein 7.1 g/dL (6.6-8.7)
[2023-02-20 05:12] LABS: NT Pro B Type Natriuretic Pept 4747 pg/mL (0-450)
--- NOTE | 2023-02-20 07:07 | ECG_ITS ---
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 Interpretive Statements NAME OF STUDY: LEXISCAN SESTAMIBI STRESS TEST INDICATION: Chest Pain, PROCEDURE: At the baseline, the EKG revealed normal sinus rhythm with a poor R wave progression. Possible old anteroseptal MS. Nonspecific IVCD. PVCs.. The baseline heart was 88 bpm with a blood pressue of 123/62 mm of Hg Lexiscan was infused over a period of 20 seconds. A total of 0.4 milligrams of Lexiscan was infused. The stress phase was continued for a total of 5 minutes. Heart rate at the end of the stress phase was 87 bpm with a blood pressure 121/51 mm of Hg. The EKG at the peak infusion revealed more frequent PVCs and nonspecific T wave changes. Sestamibi was injected 20 seconds after the Lexiscan infusion. Heart rate at the end of the recovery phase was 80 bpm with a blood pressure of 113/49 mm of Hg. CONCLUSION: 1. Nonspecific EKG changes with the LexiScan infusion 2. Lexiscan infusion because more from frequent PVCs. 3. Normal blood pressure and heart rate response 4. Sestamibi/sestamibi perfusion scan pending; see separate report. Electronically Signed On 03-15-2023 9:58:51 CDT by Wes Vyas M.D. [id number]
[2023-02-20] MEDS: regadenoson 0.4 Mg/5 ml Syringe IVP (07:15)
--- NOTE | 2023-02-20 08:19 | PC.NURSE ---
Patient came back from stress test at 0820.
[2023-02-20] MEDS: pantoprazole DR 40 mg Tablet PO (08:37)
[2023-02-20] MEDS: aspirin 81 mg EC Tablet PO (08:37)
[2023-02-20] MEDS: FUROsemide 10 mg/mL SDV 4mL 40 MG IVP ×2 (08:37→17:37)
[2023-02-20] MEDS: tamsulosin 0.4 mg Capsule 0.8 MG PO (08:37)
[2023-02-20] MEDS: metOLazone 5 MG Tablet PO (08:38)
[2023-02-20] MEDS: potassium chloride ER 20 mEq Tablet 40 MEQ PO (08:38)
[2023-02-20] MEDS: HYDROcodone-acetaminophen 5-325 mg Tablet 1 TAB PO (09:36)
--- NOTE | 2023-02-20 10:38 | PC.SOCIAL ---
[facility] IMM update: pg 2 of Imm dated and reviewed with pt. Copy provided. Copy dated, initialed and placed in chart. [id number]
--- NOTE | 2023-02-20 15:58 | PM.CONSULT ---
Providers/Reason For Consult Consulting Physician/Specialty*: Dr. Garrett, Cardiology Reason for Consult*: CHF exacerbation, abnormal stress test Attending Physician: Sulaiman Godinez MD Primary Care Provider: Yasmeen Lepe History of Present Illness History of Present Illness Marko Shepard is a 87 year old male with PMHx of CHF, CAD, HLD, BPH, tobacco and alcohol abuse and HTN. He has PMHx of CAD s/p [address] Renteria 5--6 years ago at [facility]. He was seen in office with c/o orthopnea x last 4-5 days, leg swelling and exertional SOB.?He continued to have SOB and came to the hospital. He was managed for decompensated CHF with IV diuretics and underwent echo cardiogram and stress test. Troponins flat. Stress test with some reversibility in lateral wall and hence I have been asked to evaluate the patient. Review of Systems Const: Denies: fever(s) or chills Eyes: Denies: change in vision Card: Reports: palpitations, irregular heart rhythm, swelling of feet/ankles, dyspnea on exertion and orthopnea; Denies: chest pain, lightheadedness, syncope or pre-syncope Resp: Reports: dyspnea; Denies: productive cough or non-productive cough GI: Denies: abdominal pain, nausea or vomiting Musc: Reports: back pain; Denies: neck pain or joint pain Neuro: Denies: headache(s) or dizziness Psych: Reports: anxiety and depression Gera/Lymph: Reports: easy bruising and easy bleeding Medications/Allergies Home Medications Medication Instructions Recorded Confirmed Last Taken Type albuterol sulfate 90 mcg/actuation 2 puff inhalation Q6H PRN 02/07/23 02/18/23 Unknown History aerosol inhaler Shortness Of Breath alprazolam 0.25 mg tablet 0.25 mg PO BID PRN Anxiety 02/07/23 02/18/23 Unknown History aspirin 81 mg tablet,delayed 81 mg PO QAM 02/07/23 02/18/23 Unknown History release (Adult Low Dose Aspirin) cetirizine 10 mg tablet (Allergy 10 mg PO DAILY PRN Allergy Symptoms 02/07/23 02/18/23 Unknown History Relief (cetirizine)) diltiazem HCl 30 mg tablet 30 mg PO DAILY PRN Blood Pressure 02/07/23 02/18/23 3 Weeks Ago History ~01/28/23 see pharmacy comment fluticasone propionate 50 1 spray intranasal DAILY PRN 02/07/23 02/18/23 Unknown History mcg/actuation nasal Allergy Symptoms spray,suspension (Flonase Allergy Relief) latanoprost 0.005 % eye drops 1 drp ophthalmic (eye) BEDTIME 02/07/23 02/18/23 Unknown History meloxicam 15 mg tablet 15 mg PO QAM 02/07/23 02/18/23 Unknown History multivitamin 1 tab PO QAM 02/07/23 02/18/23 Unknown History tamsulosin 0.4 mg capsule 0.8 mg PO QAM 02/07/23 02/18/23 Unknown History cholecalciferol (vitamin D3) 25 25 mcg PO .TWICE A WEEK 02/18/23 02/18/23 Unknown History mcg (1,000 unit) tablet (Vitamin D3) furosemide 40 mg tablet 40 mg PO QAM 02/18/23 02/18/23 Unknown History potassium chloride 20 mEq 20 meq PO QAM 02/18/23 02/18/23 Unknown History tablet,extended release(part/cryst) vitamins A,C,B-yvtk-svetkr 2,148 1 tab PO DAILY 02/18/23 02/18/23 Unknown History mcg-113 mg-45 mg-17.4 mg tablet (PreserVision AREDS) Allergies Allergy/AdvReac Type Severity Reaction Status Date / Time celecoxib Allergy Unknown Unknown Verified 02/18/23 09:11 cholestyramine Allergy Unknown Unknown Verified 02/18/23 09:11 doxepin Allergy Unknown Unknown Verified 02/18/23 09:11 ezetimibe Allergy Unknown Unknown Verified 02/18/23 09:11 metaxalone Allergy Unknown Unknown Verified 02/18/23 09:11 niacin Allergy Unknown Unknown Verified 02/18/23 09:11 simvastatin Allergy Unknown Unknown Verified 02/18/23 09:11 alirocumab AdvReac Mild ADV-Weaknes Verified 02/18/23 09:11 s evolocumab AdvReac Mild ADV-Weaknes Verified 02/18/23 09:11 s rosuvastatin AdvReac Mild ADR-Cramping Verified 02/18/23 09:11 of the Muscles Current Medications Generic Name Dose Route Start Last Admin Trade Name Freq PRN Reason Stop Dose Admin Alprazolam 0.25 mg 02/18/23 00:47 02/20/23 00:26 Alprazolam 0.5 Mg Tablet PO 0.25 mg BID PRN Administration ANXIETY Aspirin 81 mg 02/18/23 09:00 02/20/23 08:37 Aspirin 81 Mg Ec Tablet PO 81 mg DAILY SURINDER Administration Enoxaparin Sodium 40 mg 02/18/23 00:45 02/20/23 00:27 Enoxaparin 40 Mg/0.4 Ml Syringe SUBCUT 40 mg Q24H SURINDER Administration Pantoprazole Sodium 40 mg 02/18/23 09:00 02/20/23 08:[address] 40 Mg Tablet PO 40 mg DAILY SURINDER Administration Tamsulosin HCl 0.8 mg 02/18/23 09:00 02/20/23 08:37 Tamsulosin 0.4 Mg Capsule PO 0.8 mg DAILY SURINDER Administration PFSH Acute PFSH: Medical History Atrial fibrillation BPH (benign prostatic hyperplasia) CAD (coronary artery disease) CHF (congestive heart failure) CKD (chronic kidney disease) Depression DJD (degenerative joint disease) OPAL (generalized anxiety disorder) History of alcohol abuse History of prostate cancer History of squamous cell carcinoma HTN (hypertension) Hyperlipidemia Insomnia Surgical History S/P coronary angiogram S/P coronary artery stent placement Family History Brother , Age 55 Diabetes Mother , 86 y/o Myocardial infarction Other CAD (coronary artery disease) Social History Smoking and tobacco status: former smoker Vitals/I&O/Wt Last Vital Signs Temp 98.5 F 02/20/23 15:53 Pulse 91 02/20/23 15:53 Resp 16 02/20/23 15:53 BP 138/80 02/20/23 15:53 Pulse Ox 96 02/20/23 15:53 O2 Del Method Room Air 02/20/23 15:53 O2 Flow Rate 3 02/19/23 03:52 02/20/23 02/20/23 02/20/23 06:59 14:59 22:59 Intake Total 150 / 750 240 / 240 Output Total 1050 / 4120 1140 / 1140 Balance -900 / -3370 -900 / -900 Physical Exam Const: COMMON NORMALS: no acute distress, patient oriented x3 and alert GENERAL APPEARANCE: cooperative, comfortable, well kempt and well hydrated HENMT: COMMON NORMALS: hearing grossly normal bilaterally, external ears normal and moist oral mucous membranes FACE & SINUS: normal facial exam EXTERNAL EAR: Yes external ears normal MOUTH: lip normal Eye: COMMON NORMALS: EOMs intact bilaterally and no scleral icterus GENERAL EYE: appearance normal, both eyes and all related structures ALIGNMENT: Yes alignment normal Neck/C-Spine: COMMON NORMALS: no lymphadenopathy, supple and no JVD GENERAL: Yes normal visual inspection and Yes trachea midline CAROTIDS: Yes normal carotid upstroke Lymph: LYMPHATIC: no lymphadenopathy noted Chest: COMMONS NORMALS: normal inspection of the chest and normal palpation of entire chest wall CHEST: Yes Symmetrical chest wall rise and No tenderness Resp: COMMON NORMALS: clear to auscultation bilaterally EFFORT & INSPECTION: Yes able to speak in complete sentences and No respiratory distress AUSCULTATION: clear to auscultation bilaterally, no crackles, no rales, no rhonchi and no wheezes Cardio: COMMON NORMALS: no JVD, regular rate, regular rhythm, S1 normal heart sound present, S2 normal heart sound present and Peripheral pulses 2+ throughout PALPATION: normal PMI RATE: regular rate RHYTHM: regular rhythm HEART SOUNDS: S1 normal heart sound present, S2 normal heart sound present, no click, no gallops and no murmurs BRUITS: no carotid bruits PERIPHERAL PULSES: Peripheral pulses 2+ throughout, radial pulses present, posterior tibial pulses present and dorsalis pedis present GI: COMMON NORMALS: Soft to palpation AUSCULTATION: Yes normoactive bowel sounds PALPATION: Yes Soft to palpation, No Tenderness to palpation present (GI), No Guarding due to palpation present (GI) and No Rigid due to palpation PERCUSSION: tympanic to percussion Extremity: GENERAL: No clubbing, No cyanosis, Yes edema and No pallor Neuro: COMMON NORMALS: patient oriented x3, CN's II-XII intact bilaterally and no focal motor deficits SENSORIUM/ORIENTATION: Yes alert Psych: COMMON NORMALS: Normal thought process present and speech normal APPEARANCE: Yes well kempt SPEECH: Yes normal speech MOOD & AFFECT: Yes euthymic mood THOUGHT PROCESS: Normal thought process present THOUGHT CONTENT: Yes Normal thought content present Data 02/21/23 04:16 02/21/23 04:16 A&P Assessment and plan (1) CHF (congestive heart failure): HFrEF (LVEF=25%); new by history; records from [facility] requested Diursed approx 7 L since admission SOB has improved continue with diuresis (2) Abnormal stress test: EKG with sinus tachycardia, possible anteroseptal [place] of indeterminate age, RBBB Inferior and inferolateral wall partially reversible ischemia on stress test and possibly new decrease in LV function when compared to study 2-3 years back per patient -Decision for C/medical management based on records obtained -continue ASA in the meantime -not on statin/zetia or PCSK9i d/t poor tolerance of meds (3) HTN (hypertension): (4) Hyperlipidemia: (5) CKD (chronic kidney disease): Plan Frequent PVC's RBBB Consult Attestations Time Spent in Patient Care: Greater than 35 minutes Coding Level of Care Code 58703 Diagnoses CHF (congestive heart failure) I50.9 Abnormal stress test R94.39 HTN (hypertension) I10 Hyperlipidemia E78.5 CKD (chronic kidney disease) N18.9
--- NOTE | 2023-02-20 16:13 | NMCV_ITS ---
NM james perf SPECT r/s* [id number] Marko Shepard Age: 87 Gender: M : 1935 Exam Date: 02/20/2023 06:34 Ordering Phys: Sulaiman Godinez MD Technologist: MALI Tristan Exam Location: [facility] Indications: CHEST PAIN STRESS TEST [facility] IMAGE PROTOCOL Rest/Stress 1 Lexiscan Day Radiopharmaceutical Dose (mCi) Administration Site Administered by Rest: Tc-99m 10.9 IV MALI Walker Sestamibi Stress:Tc-99m 32.6 IV MALI Walker Sestamibi Rest: 20-Feb-2023 60 Discovery 630 Stress: 20-Feb-2023 30 Discovery 630 0.4mg Lexiscan. Supine position only as patient was unable to lay prone. SPECT RESULTS Technical Quality: Excellent Raw Data Analysis: Normal Image Corrections: No attenuation or motion correction applied Summed Stress Score: 8 Summed Rest Score: 5 Summed Difference Score: 4 PERFUSION FINDINGS Moderate area of minimal to moderately decreased tracer uptake in the basal, mid and apical inferior wall, mid inferolateral and LV apex. Significant reversibility was noted in the inferolateral region with some reversibility in the inferior region. FUNCTIONAL RESULTS (calculated via Gated SPECT) Stress Image LV EF (%): 25 Stress EDV (mL):227 TID: 1.02 Stress ESV (mL):171 FUNCTIONAL FINDINGS: Segmental wall motion analysis revealed severe diffuse hypokinesia of the left ventricle IMPRESSIONS 1. Myocardial perfusion imaging revealing moderate area of minimal to moderately decreased tracer uptake in the inferior and inferolateral regions with small area of significant reversibility in the inferolateral region, suggesting myocardial scarring with possible small areas of forest-infarction ischemia in the distribution of the left circumflex artery predominantly with some involvement of the right coronary artery territory. 2. Markedly diminished LV ejection fraction of 25%. 3. LV wall motion analysis revealing severe diffuse hypokinesia of left ventricle 4. Dilated LV cavity with end-systolic volume of 171 ml The LV dysfunction appears to be out of proportion to the extent of ischemia. No similar previous studies are available for comparison Dr Wes Vyas MD FAC (Electronically Signed) Final Date: 20 February 2023 15:26 S
--- NOTE | 2023-02-20 18:58 | P.PN_ITS ---
Subjective Subjective: - Patient was seen this morning, he tells me he feels a lot better with diuresis, he was peeing all the day yesterday tells me -Patient had cardiac stress testing -I spoke to patient about his cardiac stress test results, concerns for forest- infarction ischemia in the left circumflex and RCA territory -Spoke to cardiology, will consult -Patient denies any chest pain Vitals/I&O/Wt Last Vital Signs Temp 98.5 F 02/20/23 15:53 Pulse 91 02/20/23 15:53 Resp 16 02/20/23 15:53 BP 138/80 02/20/23 15:53 Pulse Ox 96 02/20/23 15:53 O2 Del Method Room Air 02/20/23 15:53 O2 Flow Rate 3 02/19/23 03:52 02/20/23 02/20/23 02/20/23 06:59 14:59 22:59 Intake Total 150 / 750 240 / 240 120 / 360 Output Total 1050 / 4120 1140 / 1140 Balance -900 / -3370 -900 / -900 120 / -780 Physical Exam Const: COMMON NORMALS: no acute distress and patient oriented x3 Resp: COMMON NORMALS: normal respiratory effort, No retractions, No use of accessory muscles and clear to auscultation bilaterally AUSCULTATION: clear to auscultation bilaterally Cardio: COMMON NORMALS: regular rate, regular rhythm, S1 normal heart sound pr esent and S2 normal heart sound present RATE: regular rate RHYTHM: regular rhythm HEART SOUNDS: S1 normal heart sound present and S2 normal heart sound present GI: COMMON NORMALS: Normal to inspection, nondistended, normoactive bowel sounds present and non-tender Extremity: COMMON NORMALS: no pedal edema Neuro: COMMON NORMALS: patient oriented x3 Psych: COMMON NORMALS: mental status grossly normal Data 02/20/23 04:19 02/20/23 04:19 A&P Assessment and plan (1) CHF (congestive heart failure): Patient presenting with progressively increasing dyspnea on exertion, orthopnea, clinically appears to be in CHF. Acute on chronic systolic CHF exacerbation. BNP elevated, chest x-ray showing bilateral infiltrates appearing to be pulmonary vascular congestion and bilateral small effusions. Daily dose Lasix, 40 mg IV with metlazone, will consider another lasix 40mg ivp in the evening Recent echocardiogram from January 22, 2023 showed severely reduced EF of 30 to 35%. RV is hypokinetic. Mild mitral regurgitation and tricuspid regurg regurgitation along with mild pulmonary hypertension. EKG today without acute ST-T wave changes. QTc prolonged at 528. Troponin baseline at 31, 2 hours at 31.99 and 6 hours at 36.27. Patient was planned for an outpatient stress test however this has not yet happened. Supplemental O2 to keep saturation greater than 92% Monitor SHANIQUE's and renal function while on IV diuretics. (2) Elevated troponin: IMPRESSIONS ?1.? Myocardial perfusion imaging revealing moderate area of minimal to ?moderately decreased tracer uptake in the inferior and inferolateral regions ?with small area of significant reversibility in the inferolateral region, ?suggesting myocardial scarring with possible small areas of forest-infarction ?ischemia in the distribution of the left circumflex artery predominantly with ?some involvement of the right coronary artery territory. ?2.? Markedly diminished LV ejection fraction of 25%. ?3.? LV wall motion analysis revealing severe diffuse hypokinesia of left ?ventricle ?4.? Dilated LV cavity with end-systolic volume of 171 ml ?? The LV dysfunction appears to be out of proportion to the extent of ischemia.? ?No similar previous studies are available for comparison -Cardiology consulted (3) Systolic CHF, acute on chronic: (4) Abnormal stress test: Plan Plan for today continue to [place], spoke to cardiology about stress testing results, will await recommendation, Attestations Medical Necessity Statement*: Patient requires hospitalization for elevated troponins, positive stress test, Diagnoses CHF (congestive heart failure) I50.9 Elevated troponin R77.8 Systolic CHF, acute on chronic I50.23 Abnormal stress test R94.39
--- NOTE | 2023-02-20 19:09 | PC.NURSE ---
Patient sitting up to chair. C/o back pain while lying in bed. Denies pain or needs presently.
[2023-02-21] VITALS (57 sets, daily range): BP systolic 94–123; BP diastolic 48–78; PULSE 48–91; RESP 8–23; TEMP 36.6; O2SAT 77–100
[2023-02-21 05:04] LABS: Basophils % 0.5 %; Eosinophils # 0.1 10^3/uL (0.0-0.8); Eosinophils % 3.5 %; Lymphocytes # 0.5 10^3/uL (0.8-4.8); Lymphocytes % 13.6 %; Mean Corpuscular HGB Conc 33.3 g/dL (30.0-36.0); Mean Corpuscular Volume 96.1 fl (80-94); Mean Platelet Volume 12.1 fL (7.4-10.4); Monocytes # 1.1 10^3/uL (0.2-0.9); Monocytes % 27.5 %; Neutrophils # 2.12 10^3/uL (1.8-7.7); Neutrophils % 53.6 %; Nucleated Red Blood Cells % 0 %; Platelet Count 162 10^3/cmm (130-400); Red Blood Count 4.37 10^6/uL (4.1-5.3); Red Cell Distribution Width 13.7 % (12.1-15.1)
[2023-02-21 05:42] LABS: Alanine Aminotransferase 14 U/L (0-41); Albumin Level 4.1 g/dL (3.5-5.2); Alkaline Phosphatase 79 U/L (40-130); Anion Gap 17.5 (5-19); Aspartate Amino Transferase 14 U/L (0-40); Blood Urea Nitrogen 21 mg/dL (8-23); Calcium 9.5 mg/dL (8.5-10.5); Carbon Dioxide 32 mmol/L (22-29); Chloride 94 mmol/L (98-107); Creatinine Clr Calc Pharmacy 50.0788; Globulin 2.2 g/dL (1.3-4.6); Glucose 107 mg/dL (65-115); Osmolality Calculated 293 mOsm/kg (285-295); Potassium 3.5 mmol/L (3.5-5.1); Sodium 140 mmol/L (136-145); Total Bilirubin 0.4 mg/dL (0.15-1.2); Total Protein 6.3 g/dL (6.6-8.7)
[2023-02-21 05:54] LABS: NT Pro B Type Natriuretic Pept 3842 pg/mL (0-450)
[2023-02-21] MEDS: tamsulosin 0.4 mg Capsule 0.8 MG PO (08:24)
[2023-02-21] MEDS: pantoprazole DR 40 mg Tablet PO (08:24)
[2023-02-21] MEDS: aspirin 81 mg EC Tablet PO (08:24)
[2023-02-21] MEDS: HYDROcodone-acetaminophen 5-325 mg Tablet 1 TAB PO (08:35)
[2023-02-21] MEDS: potassium chloride ER 20 mEq Tablet 40 MEQ PO (09:03)
[2023-02-21] MEDS: FUROsemide 10 mg/mL SDV 4mL 40 MG IVP (09:03)
[2023-02-21] MEDS: metOLazone 5 MG Tablet PO (09:04)
[2023-02-21] MEDS: acetaminophen 325 mg Tablet 650 MG PO (13:26)
--- NOTE | 2023-02-21 15:39 | PM.PN ---
Subjective Subjective: - Patient was seen this morning -Denies any fevers, denies any chills -He feels a lot better, he tells me that his breathing has improved, still having some edema he tells me, still having some shortness of breath with exertion Vitals/I&O/Wt Last Vital Signs Temp 97.8 F 02/21/23 07:42 Pulse 70 02/21/23 12:00 Resp 22 H 02/21/23 12:00 BP 94/48 02/21/23 12:00 Pulse Ox 92 02/21/23 12:00 O2 Del Method Room Air 02/21/23 12:00 O2 Flow Rate 3 02/19/23 03:52 02/21/23 02/21/23 02/21/23 06:59 14:59 22:59 Intake Total 360 / 360 Output Total 400 / 1865 400 / 400 800 / 1200 Balance -400 / -1505 -40 / -40 -800 / -840 Physical Exam Const: COMMON NORMALS: no acute distress and patient oriented x3 Resp: COMMON NORMALS: normal respiratory effort, No retractions and No use of accessory muscles AUSCULTATION: crackles Cardio: COMMON NORMALS: regular rate, regular rhythm, S1 normal heart sound present and S2 normal heart sound present RATE: regular rate RHYTHM: regular rhythm HEART SOUNDS: S1 normal heart sound present and S2 normal heart sound present GI: COMMON NORMALS: Normal to inspection, nondistended, normoactive bowel sounds present and non-tender Extremity: COMMON NORMALS: no pedal edema Neuro: COMMON NORMALS: patient oriented x3 Psych: COMMON NORMALS: mental status grossly normal Data 02/21/23 04:16 02/21/23 04:16 A&P Assessment and plan (1) CHF (congestive heart failure): Patient presenting with progressively increasing dyspnea on exertion, orthopnea, clinically appears to be in CHF. Acute on chronic systolic CHF exacerbation. Currently -7 L Still having complaints of shortness of breath exertion, crackles on exam Daily dose Lasix, 40 mg IV with metlazone Recent echocardiogram from January 22, 2023 showed severely reduced EF of 30 to 35%. RV is hypokinetic. Mild mitral regurgitation and tricuspid regurg regurgitation along with mild pulmonary hypertension. EKG today without acute ST-T wave changes. QTc prolonged at 528. Troponin baseline at 31, 2 hours at 31.99 and 6 hours at 36.27. Patient was planned for an outpatient stress test however this has not yet happened. Supplemental O2 to keep saturation greater than 92% Monitor SHANIQUE's and renal function while on IV diuretics. (2) Elevated troponin: IMPRESSIONS ?1.? Myocardial perfusion imaging revealing moderate area of minimal to ?moderately decreased tracer uptake in the inferior and inferolateral regions ?with small area of significant reversibility in the inferolateral region, ?suggesting myocardial scarring with possible small areas of forest-infarction ?ischemia in the distribution of the left circumflex artery predominantly with ?some involvement of the right coronary artery territory. ?2.? Markedly diminished LV ejection fraction of 25%. ?3.? LV wall motion analysis revealing severe diffuse hypokinesia of left ?ventricle ?4.? Dilated LV cavity with end-systolic volume of 171 ml ?? The LV dysfunction appears to be out of proportion to the extent of ischemia.? ?No similar previous studies are available for comparison -Cardiology consulted, (3) Systolic CHF, acute on chronic: (4) Abnormal stress test: Plan Plan for today continue to [place]key[place], spoke to cardiology about stress testing results, will await recommendation,, monitoring creatinine monitor potassium, continue telemetry monitoring, BMP still over 3800 still with crackles on exam, blood pressures have been soft throughout the night, will monitor closely Attestations Medical Necessity Statement*: Patient requires hospitalization for fluid overload requiring further diuresis Diagnoses CHF (congestive heart failure) I50.9 Elevated troponin R77.8 Systolic CHF, acute on chronic I50.23 Abnormal stress test R94.39
[2023-02-21] MEDS: ALPRAZolam 0.5 mg Tablet 0.25 MG PO (20:44)
[2023-02-21] MEDS: enoxaparin 40 mg/0.4 mL Syringe SUBCUT (20:45)
--- NOTE | 2023-02-21 23:22 | P.PN_ITS ---
Subjective Subjective: Denies any symptoms feels better Records were obtained and reviewed: Last nuclear stress test 06/28/20: Normal MPI with significant diaphragmatic attenuation artifact. No infarct or ischemia. LVEF=58%. Echo 06/28/20 showed normal LV cavity with LVEF 55-60% and no diagno stic regional wall motion abnormality. Normal RV size and function. sclerotic AV. mild to moderate MR. Mildly dilated ascending aorta 3.9 cm in size. PAP 36 mm Hg. LHC (02/10/2014): Short left main and patent. Very mild 20-30% plaque in mid LAD segment.Mild 30% plaque in diagonal. Px ramus with 75% eccentric and hazy lesion that underwent AMBER placement. Focal mid LCx with 85% had AMBER placement and small OM1 with ostial 70-80% stenosis. Mild 30% plaque in mid PDA and large PLB with 30-40% plaque. LVEF=50%. Medications: Reviewed: Yes Vitals/I&O/Wt Last Vital Signs Temp 97.8 F 02/21/23 20:00 Pulse 86 02/21/23 22:04 Resp 20 H 02/21/23 20:00 BP 106/64 02/21/23 20:00 Pulse Ox 94 02/21/23 20:00 O2 Del Method Room Air 02/21/23 20:00 O2 Flow Rate 3 02/19/23 03:52 02/21/23 02/21/23 02/22/23 14:59 22:59 06:59 Intake Total 360 / 360 Output Total 400 / 400 1300 / 1700 Balance -40 / -40 -1300 / -1340 Physical Exam Const: COMMON NORMALS: no acute distress, patient oriented x3 and alert GENERAL APPEARANCE: cooperative, comfortable, well kempt and well hydrated HENMT: COMMON NORMALS: hearing grossly normal bilaterally, external ears normal and moist oral mucous membranes FACE & SINUS: normal facial exam EXTERNAL EAR: Yes external ears normal MOUTH: lip normal Eye: COMMON NORMALS: EOMs intact bilaterally and no scleral icterus GENERAL EYE: appearance normal, both eyes and all related structures ALIGNMENT: Yes alignment normal Neck/C-Spine: COMMON NORMALS: no lymphadenopathy, supple and no JVD GENERAL: Yes normal visual inspection and Yes trachea midline CAROTIDS: Yes normal carotid upstroke Lymph: LYMPHATIC: no lymphadenopathy noted Chest: COMMONS NORMALS: normal inspection of the chest and normal palpation of entire chest wall CHEST: Yes Symmetrical chest wall rise and No tenderness Resp: COMMON NORMALS: clear to auscultation bilaterally EFFORT & INSPECTION: Yes able to speak in complete sentences and No respiratory distress AUSCULTATION: clear to auscultation bilaterally, no crackles, no rales, no rhonchi and no wheezes Cardio: COMMON NORMALS: no JVD, regular rate, regular rhythm, S1 normal heart sound present, S2 normal heart sound present and Peripheral pulses 2+ throughout PALPATION: normal PMI RATE: regular rate RHYTHM: regular rhythm HEART SOUNDS: S1 normal heart sound present, S2 normal heart sound present, no click, no gallops and no murmurs BRUITS: no carotid bruits PERIPHERAL PULSES: Peripheral pulses 2+ throughout, radial pulses present, posterior tibial pulses present and dorsalis pedis present GI: COMMON NORMALS: Soft to palpation AUSCULTATION: Yes normoactive bowel sounds PALPATION: Yes Soft to palpation, No Tenderness to palpation present (GI), No Guarding due to palpation present (GI) and No Rigid due to palpation PERCUSSION: tympanic to percussion Extremity: GENERAL: No clubbing, No cyanosis, Yes edema and No pallor Neuro: COMMON NORMALS: patient oriented x3, CN's II-XII intact bilaterally and no focal motor deficits SENSORIUM/ORIENTATION: Yes alert Psych: COMMON NORMALS: Normal thought process present and speech normal APPEARANCE: Yes well kempt SPEECH: Yes normal speech MOOD & AFFECT: Yes euthymic mood THOUGHT PROCESS: Normal thought process present THOUGHT CONTENT: Yes Normal thought content present Data 02/21/23 04:16 02/21/23 04:16 A&P Assessment and plan (1) CHF (congestive heart failure): HFrEF (LVEF=25%); new by history; records from [facility] requested Diursed approx 7 L since admission SOB has improved continue with diuresis (2) Abnormal stress test: EKG with sinus tachycardia, possible anteroseptal MS of indeterminate age, RBBB Inferior and inferolateral wall partially reversible ischemia on stress test and possibly new decrease in LV function when compared to study 2-3 years back per patient -Decision for LHC/medical management based on records obtained -continue ASA in the meantime -not on statin/zetia or PCSK9i d/t poor tolerance of meds I discussed the option of LHC with medical mangement and medical management alone and decision for LHC based on that. His symptoms are few weeks old so an ischemic event in last few weeks is a possibility. -At his advanced age, the risk of proceeding with LHC with serious complication of renal failure, coronary perforation, dissection, cardiac tamponade, stroke, MS and was discussed with the patient. He understands the risk and wants to proceed with the coronary angiogram -will tentatively keep him NPO (3) HTN (hypertension): (4) Hyperlipidemia: (5) CKD (chronic kidney disease): Plan Frequent PVC's RBBB Attestations Medical Necessity Statement*: needs hospital stay for CHF with recent exacerbation Coding Level of Care Code 82588 Diagnoses CHF (congestive heart failure) I50.9 Abnormal stress test R94.39 HTN (hypertension) I10 Hyperlipidemia E78.5 CKD (chronic kidney disease) N18.9
[2023-02-22] VITALS (9 sets, daily range): BP systolic 103–123; BP diastolic 49–71; PULSE 61–87; RESP 18–34; TEMP 36.3–36.6; O2SAT 92–96
[2023-02-22 04:15] LABS: Basophils % 0.8 %; Eosinophils # 0.2 10^3/uL (0.0-0.8); Eosinophils % 5.8 %; Hematocrit 41.7 % (42.0-52.0); Hemoglobin 13.5 g/dL (11.7-16.6); Lymphocytes # 0.7 10^3/uL (0.8-4.8); Lymphocytes % 17.8 %; Mean Corpuscular HGB Conc 32.4 g/dL (30.0-36.0); Mean Corpuscular Volume 95.6 fl (80-94); Mean Platelet Volume 12.2 fL (7.4-10.4); Monocytes % 24.4 %; Neutrophils # 2.01 10^3/uL (1.8-7.7); Neutrophils % 50.4 %; Nucleated Red Blood Cells % 0 %; Platelet Count 167 10^3/cmm (130-400); Red Blood Count 4.36 10^6/uL (4.1-5.3); Red Cell Distribution Width 13.4 % (12.1-15.1)
[2023-02-22 04:42] LABS: Magnesium 2.1 mg/dL (1.7-2.3)
[2023-02-22 04:52] LABS: Anion Gap 13.8 (5-19); Blood Urea Nitrogen 25 mg/dL (8-23); Calcium 9.4 mg/dL (8.5-10.5); Carbon Dioxide 36 mmol/L (22-29); Chloride 95 mmol/L (98-107); Glucose 106 mg/dL (65-115); NT Pro B Type Natriuretic Pept 3451 pg/mL (0-450); Osmolality Calculated 297 mOsm/kg (285-295); Potassium 3.8 mmol/L (3.5-5.1); Sodium 141 mmol/L (136-145)
[2023-02-22] MEDS: tamsulosin 0.4 mg Capsule 0.8 MG PO (08:16)
[2023-02-22] MEDS: pantoprazole DR 40 mg Tablet PO (08:16)
[2023-02-22] MEDS: aspirin 81 mg EC Tablet PO (08:16)
--- NOTE | 2023-02-22 09:03 | PC.SOCIAL ---
IMM Updated Updated pt on IMM. No questions voiced. Provided pt a copy. Initialed, dated, & timed copy in chart.
--- NOTE | 2023-02-22 10:06 | PM.PN ---
Subjective Subjective: Last 24 hr: Denies any symptoms feels better, PVC's isolated and in couplets noted on telemetry Medications: Reviewed: Yes Vitals/I&O/Wt Last Vital Signs Temp 97.4 F L 02/22/23 07:59 Pulse 80 02/22/23 07:59 Resp 19 H 02/22/23 07:59 BP 123/71 02/22/23 07:59 Pulse Ox 94 02/22/23 07:59 O2 Del Method Room Air 02/22/23 07:59 O2 Flow Rate 3 02/19/23 03:52 02/21/23 02/22/23 02/22/23 22:59 06:59 14:59 Intake Total 700 / 1060 Output Total 1300 / 1700 100 / 1800 Balance -1300 / -1340 600 / -740 Physical Exam Const: COMMON NORMALS: no acute distress, patient oriented x3 and alert GENERAL APPEARANCE: cooperative, comfortable, well kempt and well hydrated HENMT: COMMON NORMALS: hearing grossly normal bilaterally, external ears normal and moist oral mucous membranes FACE & SINUS: normal facial exam EXTERNAL EAR: Yes external ears normal MOUTH: lip normal Eye: COMMON NORMALS: EOMs intact bilaterally and no scleral icterus GENERAL EYE: appearance normal, both eyes and all related structures ALIGNMENT: Yes alignment normal Neck/C-Spine: COMMON NORMALS: no lymphadenopathy, supple and no JVD GENERAL: Yes normal visual inspection and Yes trachea midline CAROTIDS: Yes normal carotid upstroke Lymph: LYMPHATIC: no lymphadenopathy noted Chest: COMMONS NORMALS: normal inspection of the chest and normal palpation of entire chest wall CHEST: Yes Symmetrical chest wall rise and No tenderness Resp: COMMON NORMALS: clear to auscultation bilaterally EFFORT & INSPECTION: Yes able to speak in complete sentences and No respiratory distress AUSCULTATION: clear to auscultation bilaterally, no crackles, no rales, no rhonchi and no wheezes Cardio: COMMON NORMALS: no JVD, regular rate, regular rhythm, S1 normal heart sound present, S2 normal heart sound present and Peripheral pulses 2+ throughout PALPATION: normal PMI RATE: regular rate RHYTHM: regular rhythm HEART SOUNDS: S1 normal heart sound present, S2 normal heart sound present, no click, no gallops and no murmurs BRUITS: no carotid bruits PERIPHERAL PULSES: Peripheral pulses 2+ throughout, radial pulses present, posterior tibial pulses present and dorsalis pedis present GI: COMMON NORMALS: Soft to palpation AUSCULTATION: Yes normoactive bowel sounds PALPATION: Yes Soft to palpation, No Tenderness to palpation present (GI), No Guarding due to palpation present (GI) and No Rigid due to palpation PERCUSSION: tympanic to percussion Extremity: GENERAL: No clubbing, No cyanosis, Yes edema and No pallor Neuro: COMMON NORMALS: patient oriented x3, CN's II-XII intact bilaterally and no focal motor deficits SENSORIUM/ORIENTATION: Yes alert Psych: COMMON NORMALS: Normal thought process present and speech normal APPEARANCE: Yes well kempt SPEECH: Yes normal speech MOOD & AFFECT: Yes euthymic mood THOUGHT PROCESS: Normal thought process present THOUGHT CONTENT: Yes Normal thought content present Data 02/22/23 03:02 02/22/23 03:02 Other data: Records were obtained and reviewed: Last nuclear stress test 06/28/20: Normal MPI with significant diaphragmatic attenuation artifact. No infarct or ischemia. LVEF=58%. Echo 06/28/20 showed normal LV cavity with LVEF 55-60% and no diagnostic regional wall motion abnormality. Normal RV size and function. sclerotic AV. mild to moderate MR. Mildly dilated ascending aorta 3.9 cm in size. PAP 36 mm Hg. LHC (02/10/2014): Short left main and patent. Very mild 20-30% plaque in mid LAD segment.Mild 30% plaque in diagonal. Px ramus with 75% eccentric and hazy lesion that underwent AMBER placement. Focal mid LCx with 85% had AMBER placement and small OM1 with ostial 70-80% stenosis. Mild 30% plaque in mid PDA and large PLB with 30-40% plaque. LVEF=50%. A&P Assessment and plan (1) CHF (congestive heart failure): HFrEF (LVEF=25%); new by history; records from [facility] requested Diursed approx 7 L since admission SOB has improved Hold off on diuretics today (2) Abnormal stress test: EKG with sinus tachycardia, possible anteroseptal ID of indeterminate age, RBBB Inferior and inferolateral wall partially reversible ischemia on stress test and possibly new decrease in LV function when compared to study 2-3 years back per patient -Decision for LHC/medical management based on records obtained -continue ASA in the meantime -not on statin/zetia or PCSK9i d/t poor tolerance of meds I discussed the option of LHC with medical mangement and medical management alone and decision for LHC based on that. His symptoms are few weeks old so an ischemic event in last few weeks is a possibility. -At his advanced age, the risk of proceeding with LHC with serious complication of renal failure, coronary perforation, dissection, cardiac tamponade, stroke, ID and was discussed with the patient. He understands the risk and wants to proceed with the coronary angiogram -will tentatively keep him NPO after MN today I had a detailed discussion with patient and his family again and they would like to proceed with LHC. (3) HTN (hypertension): (4) Hyperlipidemia: (5) CKD (chronic kidney disease): MAAME on CKD -cr slightly increased today will hold off on cath today Plan Frequent PVC's RBBB Attestations Medical Necessity Statement*: Needs hospital stay for CHF Coding Level of Care Code 42008 Diagnoses CHF (congestive heart failure) I50.9 Abnormal stress test R94.39 HTN (hypertension) I10 Hyperlipidemia E78.5 CKD (chronic kidney disease) N18.9
[2023-02-22] MEDS: HYDROcodone-acetaminophen 5-325 mg Tablet 1 TAB PO ×2 (13:10)
[2023-02-22 15:41] LABS: Anion Gap 14.6 (5-19); Blood Urea Nitrogen 24 mg/dL (8-23); Calcium 9.7 mg/dL (8.5-10.5); Carbon Dioxide 34 mmol/L (22-29); Chloride 90 mmol/L (98-107); Glucose 135 mg/dL (65-115); Osmolality Calculated 286 mOsm/kg (285-295); Potassium 3.6 mmol/L (3.5-5.1); Sodium 135 mmol/L (136-145)
--- NOTE | 2023-02-22 15:42 | PM.PN ---
Subjective Subjective: - Patient was seen this morning -No chest pain, continues to have intermittent shortness of breath with exertion -No fevers, no chills Vitals/I&O/Wt Last Vital Signs Temp 97.9 F 02/22/23 14:53 Pulse 87 02/22/23 14:53 Resp 34 H 02/22/23 14:53 BP 117/56 02/22/23 14:53 Pulse Ox 92 02/22/23 14:53 O2 Del Method Room Air 02/22/23 14:53 O2 Flow Rate 3 02/19/23 03:52 02/22/23 02/22/23 02/22/23 06:59 14:59 22:59 Intake Total 700 / 1060 Output Total 100 / 1800 Balance 600 / -740 Physical Exam Const: COMMON NORMALS: no acute distress and patient oriented x3 Resp: COMMON NORMALS: normal respiratory effort, No retractions, No use of accessory muscles and clear to auscultation bilaterally AUSCULTATION: clear to auscultation bilaterally Cardio: COMMON NORMALS: regular rate, regular rhythm, S1 normal heart sound present and S2 normal heart sound present RATE: regular rate RHYTHM: regular rhythm HEART SOUNDS: S1 normal heart sound present and S2 normal heart sound present GI: COMMON NORMALS: Normal to inspection, nondistended, normoactive bowel sounds present and non-tender Extremity: COMMON NORMALS: no pedal edema Neuro: COMMON NORMALS: patient oriented x3 Psych: COMMON NORMALS: mental status grossly normal Data 02/22/23 03:02 02/22/23 15:09 A&P Assessment and plan (1) CHF (congestive heart failure): Patient presenting with progressively increasing dyspnea on exertion, orthopnea, clinically appears to be in CHF. Acute on chronic systolic CHF exacerbation. Clinically improved Currently -7 L Intermittent shortness of breath Hold Lasix for today creatinine 1.3, repeat BMP in the afternoon we will consider fluids based on creatinine trend Recent echocardiogram from January 22, 2023 showed severely reduced EF of 30 to 35%. RV is hypokinetic. Mild mitral regurgitation and tricuspid regurg regurgitation along with mild pulmonary hypertension. EKG today without acute ST-T wave changes. QTc prolonged at 528. Troponin baseline at 31, 2 hours at 31.99 and 6 hours at 36.27. Patient was planned for an outpatient stress test however this has not yet happened. Supplemental O2 to keep saturation greater than 92% Monitor SHANIQUE's and renal function while on IV diuretics. (2) Abnormal stress test: (3) HTN (hypertension): (4) Hyperlipidemia: (5) CKD (chronic kidney disease): MAAME on CKD -cr slightly increased today will hold off on cath today (6) Elevated troponin: IMPRESSIONS ?1.? Myocardial perfusion imaging revealing moderate area of minimal to ?moderately decreased tracer uptake in the inferior and inferolateral regions ?with small area of significant reversibility in the inferolateral region, ?suggesting myocardial scarring with possible small areas of forest-infarction ?ischemia in the distribution of the left circumflex artery predominantly with ?some involvement of the right coronary artery territory. ?2.? Markedly diminished LV ejection fraction of 25%. ?3.? LV wall motion analysis revealing severe diffuse hypokinesia of left ?ventricle ?4.? Dilated LV cavity with end-systolic volume of 171 ml ?? The LV dysfunction appears to be out of proportion to the extent of ischemia.? ?No similar previous studies are available for comparison -Cardiology consulted, plans on coronary angiography once creatinine is stable Plan Frequent PVC's RBBB Attestations Medical Necessity Statement*: Patient requires hospitalization for CHF, now developing MAAME, requiring diuresis to be withheld, monitoring BMP monitoring creatinine positive possible coronary angiography, spoke to cardiology, spoke to patient, spoke to nursing staff Diagnoses CHF (congestive heart failure) I50.9 Abnormal stress test R94.39 HTN (hypertension) I10 Hyperlipidemia E78.5 CKD (chronic kidney disease) N18.9 Elevated troponin R77.8
[2023-02-22] MEDS: ALPRAZolam 0.5 mg Tablet 0.25 MG PO (21:33)
[2023-02-22] MEDS: enoxaparin 40 mg/0.4 mL Syringe SUBCUT (23:50)
[2023-02-23] VITALS (11 sets, daily range): BP systolic 95–129; BP diastolic 54–74; PULSE 71–93; RESP 15–22; TEMP 36.3–37; O2SAT 91–99
[2023-02-23] MEDS: HYDROcodone-acetaminophen 5-325 mg Tablet 1 TAB PO (01:47)
[2023-02-23 04:04] LABS: Anion Gap 15.8 (5-19); Blood Urea Nitrogen 23 mg/dL (8-23); Calcium 9.6 mg/dL (8.5-10.5); Carbon Dioxide 34 mmol/L (22-29); Chloride 93 mmol/L (98-107); Chol HDL Ratio 3.18 mg/dL (1.0-5.00); Cholesterol 197 mg/dL (0-200); Creatinine Clr Calc Pharmacy 50.0788; Glucose 107 mg/dL (65-115); HDL Cholesterol 62 mg/dL (60-100); LDL Cholesterol Calculated 116 mg/dL (50-129); LDL HDL Ratio 1.87 RATIO (0.00-3.22); Osmolality Calculated 292 mOsm/kg (285-295); Potassium 3.8 mmol/L (3.5-5.1); Sodium 139 mmol/L (136-145); Triglycerides 97 mg/dL (0-150)
[2023-02-23] MEDS: diphenhydrAMINE 50 mg Capsule PO (05:49)
[2023-02-23] MEDS: sodium chloride 0.9% 1,000 ML 50 ML IV (05:51)
--- NOTE | 2023-02-23 07:00 | XACV_ITS ---
Exam Room: [facility] Ht: 183 cm Wt: 84 kg BSA: 2.07 m2 Gender: Male : 1935 Exam Priority: Routine Procedure(s): Procedure Description: Diagnostic procedure Procedure Description: PCI procedure Procedure Description: Drug Eluting Coronary Stent Procedure Description: Coronary Angiography Dennis MONTES; Diagnostic Cath Status: Urgent Diagnostic Findings * Patient with chest discomfort and abnormal stress test. Previous stent to the ramus intermedius artery. This procedure is performed via the right radial artery. * Coronary angiography reveals right coronary artery dominance. The left main coronary artery is normal and trifurcates into the left anterior descending, ramus intermedius and circumflex coronary artery. The circumflex is a relatively small vessel and contains mild to moderate diffuse disease. There is 1 marginal branch which is fairly small approximately a 1.5 to 2 mm vessel. There is a 90% stenosis in the ostium of this vessel. The ramus is a small to medium size artery. The previously placed stent is patent however the proximal portion exhibits some in-stent restenosis. Proximal to the stent there is a 99% stenosis. The left anterior descending is a moderate size vessel. It is largely free of disease with the exception of the midportion past the second diagonal branch and prior to the third diagonal branch there is a 50% stenosis. The right coronary artery is a large dominant vessel and ends distally as the posterior descending artery and 2 posterior left ventricular branches. There is mild plaquing proximally. The posterior descending artery contains a 50% stenosis in the ostium and then more moderate diffuse disease toward the midportion. Toward the distal portion there is a 90% discrete stenosis as the vessel becomes much smaller. The posterior left ventricular branch is free of disease.. PCI Status: Urgent PCI LVEF Assessed: No PCI Indication: NSTE - ACS Interventional Findings * The ostial/proximal ramus intermedius was stented primarily with 2.25 x 8 mm stent. The stent was stretched to a 2.5 mm size. Good angiographic result. No complications. Decision for PCI with Surgical Consult: No PCI for Multi-vessel Disease: No Conclusions 1. Diffuse coronary artery disease with proximal ramus intermedius lesion. This vessel stented without complication. Recommendations * Continued medical therapy. Interventional RX Recommendation: PCI w/o planned CABG Diagnostic RX Recommendation: PCI w/o planned CABG Anticoagulation: Heparin Pressures Phase:Rest AO : 107 / 70 ( 87 ) @ 7:55:00 AM 109 / 60 ( 81 ) @ 8:09:00 AM Clinical Evaluation EBL: 5mL-10mL Procedural Details Procedure Consent Obtained. Admit Source: In Patient. Pre-Procedure Time Out. Identified patient by full name and date of as verbalized by the patient/guarantor. Does the consent match the physician's order: Yes. Accurate & Complete Informed Consent: Yes. Inpatient/Outpatient History & Physical on Chart: Yes. If H&P is completed, is and addenduem needed: No; If yes, is the addendum complete: N/A. Visualize and Verify Site with Patient/Guarantor: N/A. Relevant Radiology Images available: N/A. The risks, benefits, and alternatives of sedation and/or procedure were discussed by physician. The patient agrees to continue. Procedure started. [facility] Clinical Fraility Score: 3: Managing Well. 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 Chest Pain Symptom Assessment: Typical Angina Symptoms. Cardiovascular Instability: Yes, if yes, Persistant Ischemic Symptoms. Correct patient, site and procedure confirmed by cath team. Current diagnosis: Chest Pain. PERRLA. Strong, equal hand chief medical physicist bilaterally. Lungs clear x 5 lobes. IV Site on Arrival: 20 gauge in the left anticubital. IV Fluids: 0.9% NaCl at KVO. 0 mL infused prior to labor utilization superintendent. Pre Procedural Pulses: right radial was 2+. Pre Procedural Pulses: bilateral dorsalis pedis was 2+. Oxygen started at 2liters/min via nasal canula. right groin was prepped with chloroprep then draped in the usual sterile fashion. right radial was prepped with chloroprep then draped in the usual sterile fashion. Physician notified. Baseline sample Acquired. HR: 90 BPM. Physician arrived. Physician scrubbed in. Immediate Pre-Procedure Time Out. Correct Patient: Yes; Correct Procedure: Yes; Correct Site: Yes; Correct Patient Position: Yes; Correct Supplies: Yes; Dried Flammable Prep: Yes; Blood Products Available: N/A;. Lidocaine 1% infiltrated to the right radial. Arterial access obtained. A 5 [place] Justin catheter in over wire. Multiple views taken of left coronary artery. Catheter redirected to the RCA. Multiple views taken of right coronary artery. Catheter removed over the exchange wire. 6 [place] XB 3.5 guide catheter was inserted over the wire. Physician review of cine films. [place] guidewire was advanced through the guide catheter to lesion in the Ramus. Stent inserted to lesion in the Ramus. Inflation Number : 1 Sandy Farr GERRI 2.25X8 AMBER -Lot Number# [id number] exp 12/08/23 was prepped and advanced across the Ramus. The stent was deployed at 17 RIGO for 0:32 seconds. Results checked. Stent balloon out over wire. Wire out. Guide catheter out. Physician scrubbed out. Patient's family updated. Post Procedure: Pulses reassessed and unchanged. PERRLA. Strong, equal hand chief medical physicist bilaterally. Medication's Wasted: Lidocaine 1% = 1 mL. Medication's Wasted: Nitro = 49.8 mg. Medication's Wasted: Heparin = 1000 u. Total IV fluids: 150 mL. Post-op diagnosis: Obstructive CAD. Complications: none. Estimated blood loss: 5mL-10mL. Responsiveness - Normal response to verbal stimuli; alert and oriented, PERRLA. Airway - Unaffected, no intervention required; spontaneous ventilation. Circulation: W/N/L, pulses unchanged. Nausea/Vomiting: No. Procedure completed. Patient transferred by bed to 1st floor. Vital chart was stopped. Access Site Site: Right Radial artery Sheath Size: 6 Fr Hemostasis Success: Unsuccessful Procedure Medications Start: 6:51 AM Stop: 6:51 AM Medication: Versed Amount: 1 mg Route: I.V. Start: 6:52 AM Stop: 6:52 AM Medication: Fentanyl Amount: 50 mcg Route: I.V. Start: 6:53 AM Stop: 6:53 AM Medication: Nitrogylcerin Amount: 200 mcg Route: I.A. Start: 6:55 AM Stop: 6:55 AM Medication: Heparin Amount: 5000 units Route: I.V. Start: 7:17 AM Stop: 7:17 AM Medication: Versed Amount: 1 mg Route: I.V. Start: 7:17 AM Stop: 7:17 AM Medication: Fentanyl Amount: 50 mcg Route: I.V. Start: 7:20 AM Stop: 7:20 AM Medication: Plavix Amount: 600 mg Route: P.O. I, the attending physician, have reviewed and verified all procedure medications. Yes, all medications given per verbal order History/Risk Factors Hypertension: Yes Dyslipidemia: Yes Peripheral Arterial Disease (PAD): No Myocardial Infarction (WA): No Obesity: No Renal Disease: No Tobacco Use: Former Prior Interventions PCI: No CABG: No Valve Surgery: No Report Signatures Finalized by Dr. Sacha Collins MD on 02/23/2023 07:40 AM
[2023-02-23] MEDS: sodium chloride 0.9% 1,000 ML 100 ML IV (08:00)
[2023-02-23] MEDS: pantoprazole DR 40 mg Tablet PO (09:44)
[2023-02-23] MEDS: aspirin 81 mg EC Tablet PO (09:45)
[2023-02-23] MEDS: tamsulosin 0.4 mg Capsule 0.8 MG PO (09:45)
[2023-02-23] MEDS: polyethylene glycol 3350 Pkt 17 gm PO (13:22)
--- NOTE | 2023-02-23 13:25 | P.PN_ITS ---
Subjective Subjective: - Patient was seen this morning, he tells me that he had a stent placed, this morning, denies any chest pain, denies any shortness of breath, Vitals/I&O/Wt Last Vital Signs Temp 98.6 F 02/23/23 12:00 Pulse 92 02/23/23 12:00 Resp 19 H 02/23/23 12:00 BP 118/64 02/23/23 12:00 Pulse Ox 92 02/23/23 12:00 O2 Del Method Room Air 02/23/23 12:00 O2 Flow Rate 3 02/19/23 03:52 02/22/23 02/23/23 02/23/23 22:59 06:59 14:59 Intake Total 350 / 350 300 / 650 480 / 480 Output Total 725 / 725 600 / 1325 650 / 650 Balance -375 / -375 -300 / -675 -170 / -170 Physical Exam Const: COMMON NORMALS: no acute distress and patient oriented x3 Resp: COMMON NORMALS: normal respiratory effort, No retractions, No use of accessory muscles and clear to auscultation bilaterally AUSCULTATION: clear to auscultation bilaterally Cardio: COMMON NORMALS: regular rate, regular rhythm, S1 normal heart sound present and S2 normal heart sound present RATE: regular rate RHYTHM: regular rhythm HEART SOUNDS: S1 normal heart sound present and S2 normal heart sound present GI: COMMON NORMALS: Normal to inspection, nondistended, normoactive bowel sounds present and non-tender Extremity: COMMON NORMALS: no pedal edema Neuro: COMMON NORMALS: patient oriented x3 Psych: COMMON NORMALS: mental status grossly normal Data 02/22/23 03:02 02/23/23 02:25 A&P Assessment and plan (1) CHF (congestive heart failure): Patient presenting with progressively increasing dyspnea on exertion, orthopnea, clinically appears to be in CHF. Acute on chronic systolic CHF exacerbation. Clinically improved Currently -7 L Intermittent shortness of breath Lasix on hold for today Recent echocardiogram from January 22, 2023 showed severely reduced EF of 30 to 35%. RV is hypokinetic. Mild mitral regurgitation and tricuspid regurg regurgitation along with mild pulmonary hypertension. EKG today without acute ST-T wave changes. QTc prolonged at 528. Troponin baseline at 31, 2 hours at 31.99 and 6 hours at 36.27. Patient was planned for an outpatient stress test however this has not yet happened. Supplemental O2 to keep saturation greater than 92% Monitor SHANIQUE's and renal function while on IV diuretics. (2) Abnormal stress test: (3) HTN (hypertension): (4) Hyperlipidemia: (5) CKD (chronic kidney disease): MAAME on CKD -cr slightly increased today will hold off on cath today (6) Elevated troponin: IMPRESSIONS ?1.? Myocardial perfusion imaging revealing moderate area of minimal to ?moderately decreased tracer uptake in the inferior and inferolateral regions ?with small area of significant reversibility in the inferolateral region, ?suggesting myocardial scarring with possible small areas of forest-infarction ?ischemia in the distribution of the left circumflex artery predominantly with ?some involvement of the right coronary artery territory. ?2.? Markedly diminished LV ejection fraction of 25%. ?3.? LV wall motion analysis revealing severe diffuse hypokinesia of left ?ventricle ?4.? Dilated LV cavity with end-systolic volume of 171 ml ?? The LV dysfunction appears to be out of proportion to the extent of ischemia.? ?No similar previous studies are available for comparison -Cardiology consulted, status post coronary angiography, status post stent placement on aspirin, Plavix Plan Frequent PVC's RBBB Attestations Medical Necessity Statement*: Patient requires hospitalization for CHF, CAD status post stent placement, will monitor for 24 hours Diagnoses CHF (congestive heart failure) I50.9 Abnormal stress test R94.39 HTN (hypertension) I10 Hyperlipidemia E78.5 CKD (chronic kidney disease) N18.9 Elevated troponin R77.8
[2023-02-23] MEDS: ALPRAZolam 0.5 mg Tablet 0.25 MG PO (23:47)
[2023-02-23] MEDS: enoxaparin 40 mg/0.4 mL Syringe SUBCUT (23:48)
[2023-02-24] VITALS: BP 129/72; PULSE 91; RESP 23; TEMP 36.7; O2SAT 96
[2023-02-24 03:23] LABS: Anion Gap 14.5 (5-19); Blood Urea Nitrogen 21 mg/dL (8-23); Calcium 9.5 mg/dL (8.5-10.5); Carbon Dioxide 32 mmol/L (22-29); Chloride 95 mmol/L (98-107); Glucose 102 mg/dL (65-115); Magnesium 2.1 mg/dL (1.7-2.3); Osmolality Calculated 289 mOsm/kg (285-295); Potassium 3.5 mmol/L (3.5-5.1); Sodium 138 mmol/L (136-145)
[2023-02-24 04:00] VITALS: BP 116/67; PULSE 74; RESP 21; TEMP 36.6; O2SAT 94
[2023-02-24 05:22] VITALS: PULSE 73
[2023-02-24] MEDS: clopidogrel 75 mg Tablet PO (07:53)
[2023-02-24] MEDS: pantoprazole DR 40 mg Tablet PO (07:54)
[2023-02-24] MEDS: spironolactone 25 mg Tablet 12.5 MG PO (07:54)
[2023-02-24] MEDS: metoprolol succinate ER (24 HR) 25 mg Tablet 12.5 MG PO (07:54)
[2023-02-24] MEDS: aspirin 81 mg EC Tablet PO (07:54)
[2023-02-24 07:59] VITALS: BP 102/61; PULSE 83; RESP 27; TEMP 36.4; O2SAT 93
[2023-02-24 08:00] VITALS: PULSE 80
--- NOTE | 2023-02-24 08:03 | P.PN_ITS ---
Subjective Subjective: s/p LHC via R radial yesterday with placement of AMBER to px RI. some SOB, frequent PVC's on telemetry Medications: Reviewed: Yes Vitals/I&O/Wt Last Vital Signs Temp 97.8 F 02/24/23 04:00 Pulse 73 02/24/23 05:22 Resp 21 H 02/24/23 04:00 BP 116/67 02/24/23 04:00 Pulse Ox 94 02/24/23 04:00 O2 Del Method Room Air 02/24/23 04:00 O2 Flow Rate 3 02/19/23 03:52 02/23/23 02/24/23 02/24/23 22:59 06:59 14:59 Intake Total 540 / 1420 1300 / 2720 Output Total 650 / 1300 300 / 1600 Balance -110 / 120 1000 / 1120 Physical Exam Const: COMMON NORMALS: no acute distress, patient oriented x3 and alert GENERAL APPEARANCE: cooperative, comfortable, well kempt and well hydrated HENMT: COMMON NORMALS: hearing grossly normal bilaterally, external ears normal and moist oral mucous membranes FACE & SINUS: normal facial exam EXTERNAL EAR: Yes external ears normal MOUTH: lip normal Eye: COMMON NORMALS: EOMs intact bilaterally and no scleral icterus GENERAL EYE: appearance normal, both eyes and all related structures ALIGNMENT: Yes alignment normal Neck/C-Spine: COMMON NORMALS: supple and no JVD GENERAL: Yes normal visual inspection and Yes trachea midline CAROTIDS: Yes normal carotid upstroke Lymph: LYMPHATIC: no lymphadenopathy noted Chest: COMMONS NORMALS: normal inspection of the chest and normal palpation of entire chest wall CHEST: Yes Symmetrical chest wall rise and No tenderness Resp: COMMON NORMALS: clear to auscultation bilaterally EFFORT & INSPECTION: Yes able to speak in complete sentences and No respiratory distress AUSCULTATION: clear to auscultation bilaterally, no crackles, no rales, no rhonchi and no wheezes Cardio: COMMON NORMALS: no JVD, regular rate, regular rhythm, S1 normal heart sound present, S2 normal heart sound present and Peripheral pulses 2+ throughout PALPATION: normal PMI RATE: regular rate RHYTHM: regular rhythm HEART SOUNDS: S1 normal heart sound present, S2 normal heart sound present, no click, no gallops and no murmurs BRUITS: no carotid bruits PERIPHERAL PULSES: Peripheral pulses 2+ throughout, radial pulses present, posterior tibial pulses present and dorsalis pedis present GI: COMMON NORMALS: Soft to palpation AUSCULTATION: Yes normoactive bowel sounds PALPATION: Yes Soft to palpation, No Tenderness to palpation present (GI), No Guarding due to palpation present (GI) and No Rigid due to palpation Extremity: GENERAL: No cyanosis, No edema, No pallor and Yes other findings (No significant bruising or hematoma) Neuro: COMMON NORMALS: patient oriented x3, CN's II-XII intact bilaterally and no focal motor deficits SENSORIUM/ORIENTATION: Yes alert Psych: COMMON NORMALS: Normal thought process present and speech normal APPEARANCE: Yes well kempt SPEECH: Yes normal speech MOOD & AFFECT: Yes euthymic mood THOUGHT PROCESS: Normal thought process present THOUGHT CONTENT: Yes Normal thought content present Data 02/22/23 03:02 02/24/23 01:50 A&P Assessment and plan (1) CHF (congestive heart failure): HFrEF (LVEF=25%); new by history; records from [facility] reviewed. 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 -life vest on discharge for 3 months -f/u limited echo in 3 months -Discussed cardiac rehab with him. He would like to do that -f/u in 1 week at [facility] with Cris and with me in next 2-3 months (2) CAD (coronary artery disease): (3) Abnormal stress test: EKG with sinus tachycardia, possible anteroseptal NE of indeterminate age, RBBB Inferior and inferolateral wall partially reversible ischemia on stress test and possibly new decrease in LV function when compared to study 2-3 years back per patient -Decision for LHC/medical management based on records obtained -continue ASA in the meantime -not on statin/zetia or PCSK9i d/t poor tolerance of meds s/p LHC and AMBER to RI. (4) HTN (hypertension): (5) Hyperlipidemia: (6) CKD (chronic kidney disease): creatinine normalized Plan Frequent PVC's RBBB Attestations Medical Necessity Statement*: stable to be discharged home today after life vest fitting Coding Level of Care Code 42039 Diagnoses CHF (congestive heart failure) I50.9 CAD (coronary artery disease) I25.10 Abnormal stress test R94.39 HTN (hypertension) I10 Hyperlipidemia E78.5 CKD (chronic kidney disease) N18.9
[2023-02-24] MEDS: acetaminophen 325 mg Tablet 650 MG PO (08:51)
[2023-02-24] MEDS: tamsulosin 0.4 mg Capsule 0.8 MG PO (08:53)
--- NOTE | 2023-02-24 09:14 | PC.SOCIAL ---
IMM Update pg 2 of IMM updated and reviewed w/ patient. Copy provided and Copy in chart dated, and initialed.
--- NOTE | 2023-02-24 11:55 | P.DS_ITS ---
Discharge Providers Date of Admission: 02/17/23 22:01 Date of Discharge: February 24, 2023 Attending Provider at Admission: Janeth Jaramillo MD Attending Provider at Discharge: Sulaiman Godinez MD Primary Care Provider: Yasmeen Lepe Diagnoses at Discharge Discharge Diagnosis (1) CHF (congestive heart failure): Status: Acute (2) Abnormal stress test: Status: Acute (3) HTN (hypertension): Status: Acute (4) Hyperlipidemia: Status: Acute (5) CKD (chronic kidney disease): Status: Acute Reason for Visit Reason for Visit: SOB Hospital Course Hospital Course Marko Shepard is a 87 year old male with PMH CAD, CHF, HTN. He recently established care with cardiology as outpatient on 02/07/23. better he has been experiencing increasing shortness of breath over the past few weeks along with lower extremity edema and exertional shortness of breath.? He was recently started on Lasix and has been compliant with his treatment.? It appears he was being planned for a cardiac stress test as an outpatient, this is yet to happen. Denies any fever chills cough or expectoration.? He is currently on supplemental O2 at 2 L/min Patient was admitted to [facility] for CHF exacerbation, diuresed, over 7 L, overall clinically improved, discharged with Lasix therapy potassium therapy with close follow-up with cardiology as outpatient For his EF of 25%, elevated troponins underwent stress testing which was positive underwent cardiac catheterization status post cardiac stent placement, discharged on aspirin, Plavix, beta-shira, with close follow-up with cardiology as outpatient, patient has a statin intolerance Overall patient remained chest pain-free, asymptomatic, discharged with LifeVest Physical Exam Const: COMMON NORMALS: no acute distress and patient oriented x3 Resp: COMMON NORMALS: normal respiratory effort, No retractions, No use of accessory muscles and clear to auscultation bilaterally AUSCULTATION: clear to auscultation bilaterally Cardio: COMMON NORMALS: regular rate, regular rhythm, S1 normal heart sound present and S2 normal heart sound present RATE: regular rate RHYTHM: regular rhythm HEART SOUNDS: S1 normal heart sound present and S2 normal heart sound present GI: COMMON NORMALS: Normal to inspection, nondistended, normoactive bowel sounds present and non-tender Extremity: COMMON NORMALS: no pedal edema Neuro: COMMON NORMALS: patient oriented x3 Psych: COMMON NORMALS: mental status grossly normal Discharge Data Studies Completed and Pending Completed Studies During Hospitalization Category Date Time 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 echo limited [id number] Routine Ultrasound 02/18/23 08:44 Completed Pending at discharge Category Date Time Status Sestamibi Stress Test Request Routine Exams 02/19/23 16:13 Stop Req Radiology Impressions Chest X-Ray 02/17/23 20:44 IMPRESSION: 1. Small bilateral pleural effusions. 2. Cardiomegaly and pulmonary vascular congestion. 3. Bibasilar atelectasis versus minimal infiltrate. Laboratory Results WBC 4.0 10^3/uL (4.0-10.0) 02/22/23 03:02 RBC 4.36 10^6/uL (4.1-5.3) 02/22/23 03:02 Hgb 13.5 g/dL (11.7-16.6) 02/22/23 03:02 Hct 41.7 % (42.0-52.0) L 02/22/23 03:02 MCV 95.6 fl (80-94) H 02/22/23 03:02 MCH 31.0 pg (28.0-34.0) 02/22/23 03:02 MCHC 32.4 g/dL (30.0-36.0) 02/22/23 03:02 RDW 13.4 % (12.1-15.1) 02/22/23 03:02 Plt Count 167 10^3/cmm (130-400) 02/22/23 03:02 MPV 12.2 fL (7.4-10.4) H 02/22/23 03:02 Neut % (Auto) 50.4 % 02/22/23 03:02 Lymph % (Auto) 17.8 % 02/22/23 03:02 Treasure % (Auto) 24.4 % 02/22/23 03:02 Eos % (Auto) 5.8 % 02/22/23 03:02 Baso % (Auto) 0.8 % 02/22/23 03:02 Neut # (Auto) 2.01 10^3/uL (1.8-7.7) 02/22/23 03:02 Lymph # (Auto) 0.7 10^3/uL (0.8-4.8) L 02/22/23 03:02 Treasure # (Auto) 1.0 10^3/uL (0.2-0.9) H 02/22/23 03:02 Eos # (Auto) 0.2 10^3/uL (0.0-0.8) 02/22/23 03:02 Baso # (Auto) 0.0 10^3/uL (0.0-0.1) 02/22/23 03:02 Nucleated RBC % (auto) 0 % 02/22/23 03:02 Nucleated RBCs # 0.0 /100WBC 02/22/23 03:02 Specimen Type Arterial 02/17/23 20:44 Sample Site Radial, right 02/17/23 20:44 ABG pH 7.35 (7.35-7.45) 02/17/23 20:44 ABG pCO2 40.6 mmHg (35-45) 02/17/23 20:44 ABG pO2 66.4 mmHg (80.0-100.0) L 02/17/23 20:44 ABG HCO3 22.3 mmol/L (22-26) 02/17/23 20:44 ABG Base Excess -3.1 mmol/L (-2.0-2.0) L 02/17/23 20:44 Corona Test Pos 02/17/23 20:44 Hematocrit 28.6 % (42-52) L 02/17/23 20:44 Hgb O2 Saturation 88.3 % (95-100) L 02/17/23 20:44 Carboxyhemoglobin 0.5 %THgb (0.4-20.1) 02/17/23 20:44 Methemoglobin 2.4 % (0.4-1.5) H 02/17/23 20:44 Total Hemoglobin 9.3 g/dL (14-18) L 02/17/23 20:44 O2 Delivery Device None 02/17/23 20:44 O2 Liters/Min 2.0 % 02/17/23 20:44 FiO2 21.0 % 02/17/23 20:44 Freezer Laboratory Technician ID Julio C 02/17/23 20:44 Sodium 138 mmol/L (136-145) 02/24/23 01:50 Potassium 3.5 mmol/L (3.5-5.1) 02/24/23 01:50 Chloride 95 mmol/L (98-107) L 02/24/23 01:50 Carbon Dioxide 32 mmol/L (22-29) H 02/24/23 01:50 Anion Gap 14.5 (5-19) 02/24/23 01:50 BUN 21 mg/dL (8-23) 02/24/23 01:50 Creatinine 1.0 mg/dL (0.7-1.2) 02/24/23 01:50 GFR Calculation Not Reportable 02/24/23 01:50 Glucose 102 mg/dL (65-115) 02/24/23 01:50 Calculated Osmolality 289 mOsm/kg (285-295) 02/24/23 01:50 Calcium 9.5 mg/dL (8.5-10.5) 02/24/23 01:50 Magnesium 2.1 mg/dL (1.7-2.3) 02/24/23 01:50 Total Bilirubin 0.4 mg/dL (0.15-1.2) 02/21/23 04:16 AST 14 U/L (0-40) 02/21/23 04:16 ALT 14 U/L (0-41) 02/21/23 04:16 Alkaline Phosphatase 79 U/L (40-130) 02/21/23 04:16 Troponin T Baseline 31 ng/L (0-15) H 02/17/23 20:45 Troponin T 120 Minute 31.99 ng/L (0-15) H 02/17/23 22:45 Delta Troponin T 0.99 ABS# (0-10) 02/17/23 22:45 Troponin T Hi Sens 6Hr 36.27 ng/L (0-15) H 02/18/23 02:36 Troponin T Hi Sens 6Hr Delta 5.27 ng/L (0-12) 02/18/23 02:36 NT-Pro-B Natriuret Pep 3451 pg/mL (0-450) H 02/22/23 03:02 Total Protein 6.3 g/dL (6.6-8.7) L 02/21/23 04:16 Albumin 4.1 g/dL (3.5-5.2) 02/21/23 04:16 Globulin 2.2 g/dL (1.3-4.6) 02/21/23 04:16 Triglycerides 97 mg/dL (0-150) 02/23/23 02:25 Cholesterol 197 mg/dL (0-200) 02/23/23 02:25 LDL Cholesterol, Calc 116 mg/dL (50-129) 02/23/23 02:25 HDL Cholesterol 62 mg/dL (60-100) 02/23/23 02:25 LDL/HDL Ratio 1.87 RATIO (0.00-3.22) 02/23/23 02:25 Cholesterol/HDL Ratio 3.18 mg/dL (1.0-5.00) 02/23/23 02:25 TSH 1.76 uIU/mL (0.27-4.20) 02/19/23 03:42 Vitals Last Vital Signs Temp 97.6 F 02/24/23 07:59 Pulse 80 02/24/23 08:00 Resp 27 H 02/24/23 07:59 BP 102/61 02/24/23 07:59 Pulse Ox 93 02/24/23 07:59 O2 Del Method Room Air 02/24/23 07:59 O2 Flow Rate 3 02/19/23 03:52 Discharge Plan Discharge Patient Disposition: Home Condition: Stable Prescriptions: New nitroglycerin 0.4 mg Tablet, Sublingual 0.4 mg sublingual Q5M PRN (Reason: Chest Pain) 30 Days Qty: 30 0RF spironolactone 25 mg Tablet 12.5 mg PO DAILY 30 Days Qty: 30 0RF clopidogrel 75 mg Tablet 75 mg PO DAILY 30 Days Qty: 30 0RF metoprolol succinate 25 mg Tablet Extended Release 24 Hr 12.5 mg PO DAILY 30 Days Qty: 30 0RF Continued albuterol sulfate 90 mcg/actuation HFA aerosol inhaler 2 puff inhalation Q6H PRN (Reason: Shortness Of Breath) tamsulosin 0.4 mg capsule 0.8 mg PO QAM alprazolam 0.25 mg tablet 0.25 mg PO BID PRN (Reason: Anxiety) multivitamin Tablet 1 tab PO QAM latanoprost 0.005 % drops 1 drp ophthalmic (eye) BEDTIME cetirizine [Allergy Relief (cetirizine)] 10 mg tablet 10 mg PO DAILY PRN (Reason: Allergy Symptoms) fluticasone propionate [Flonase Allergy Relief] 50 mcg/actuation spray,suspension 1 spray intranasal DAILY PRN (Reason: Allergy Symptoms) Rx Instructions: administer into each nostril Vitamin D3 25 mcg (1,000 unit) Tablet 25 mcg PO .TWICE A WEEK PreserVision AREDS 2,148 mcg-113 mg-45 mg-17.4mg Tablet 1 tab PO DAILY aspirin [Adult Low Dose Aspirin] 81 mg tablet,delayed release (DR/EC) 81 mg PO QAM 30 Days Qty: 30 0RF furosemide 40 mg tablet 40 mg PO QAM 30 Days Qty: 30 0RF potassium chloride 20 mEq tablet,ER particles/crystals 20 meq PO QAM 30 Days Qty: 30 0RF Discontinued meloxicam 15 mg tablet 15 mg PO QAM diltiazem HCl 30 mg tablet 30 mg PO DAILY PRN (Reason: Blood Pressure) Discharge Orders: Discharge Order (Routine); Ordered 02/24/23 Ordered By: Sulaiman Godinez Referrals: Sacha Collins MD [Physician] - (Your Dr. Collins follow up appointment will be scheduled while you are at your Cris Taylor appointment. Thank you.) Cris Taylor FNP [Nurse Practitioner] - 02/26/23 1:45 pm Yasmeen Lepe [Primary Care Provider] - Discharge Diet: Cardiac Discharge Activity: Resume usual activity Patient Instructions: Heart Failure (DC), Coronary Angioplasty (DC), CHF Stoplight, Opioid Safety, Post Angiogram Home Care Instructions Activity Restrictions/Additional Instructions: - Please wear your LifeVest at all times -Please use aspirin and Plavix daily please do not stop taking these medications as they keep your stent open -If you develop bloody or black stools please go to the emergency room -Take Lasix 40 mg once daily with potassium, please start tomorrow -Please measure your weight daily, if you gain more than 3 pounds and you feel short of breath, take Lasix 40 mg twice daily with potassium 20 mEq twice daily for 3 days. At the end of 3 days if you feel better, go back to Lasix 40 mg once a day, if you continue to feel short of breath please go to emergency room Discharge Attestations Time Spent in Discharge Care*: greater than 30 min Quality Metrics Clinical Quality Measures [ No reported AMI, CVA or VTE this stay] Coding Level of Care Code 27096 Total time (in minutes) for Discharge: 45 Diagnoses CHF (congestive heart failure) I50.9 Abnormal stress test R94.39 HTN (hypertension) I10 Hyperlipidemia E78.5 CKD (chronic kidney disease) N18.9
[2023-02-24 12:00] VITALS: BP 110/63; PULSE 82; RESP 20; O2SAT 97
[2023-02-24] MEDS: HYDROcodone-acetaminophen 5-325 mg Tablet 1 TAB PO (13:02)
== END 2023-02-24 13:56 | disposition home or self-care (01) | DRG 246 ==
LOC: ER 22:01 → CSU 22:59
PROVIDERS: Internal Medicine Cardiovascular Disease; Admitting Provider Student in an Organized Health Care Education/Training Program; Emergency Provider Family Medicine; PCP Nurse Practitioner Family; Visit Provider Family Medicine
PROC: 027034Z Dilation of Coronary Artery, One Artery with Drug-eluting Intraluminal Device, Percutaneous Approach (ICD-10-PCS; principal; 2023-02-23 07:00)
PROC: 027034Z Dilation of Coronary Artery, One Artery with Drug-eluting Intraluminal Device, Percutaneous Approach (ICD-10-PCS; 2023-02-23 07:00)
DX: I13.0 Hypertensive heart and chronic kidney disease with heart failure and stage 1 through stage 4 chronic kidney disease, or unspecified chronic kidney disease (principal); I50.23 Acute on chronic systolic (congestive) heart failure; N17.9 Acute kidney failure, unspecified; N18.9 Chronic kidney disease, unspecified; I25.119 Atherosclerotic heart disease of native coronary artery with unspecified angina pectoris; E78.5 Hyperlipidemia, unspecified; Z79.51 Long term (current) use of inhaled steroids; I48.91 Unspecified atrial fibrillation; N40.0 Benign prostatic hyperplasia without lower urinary tract symptoms; F32.A Depression, unspecified; F41.1 Generalized anxiety disorder; F10.11 Alcohol abuse, in remission; Z85.46 Personal history of malignant neoplasm of prostate; Z87.891 Personal history of nicotine dependence; R94.31 Abnormal electrocardiogram [ECG] [EKG]; I08.1 Rheumatic disorders of both mitral and tricuspid valves; I27.20 Pulmonary hypertension, unspecified
CPT/HCPCS: 36415; 36600; 71045; 78452; 80048; 80053; 80061; 82805; 83735; 83880; 84443; 84484; 85025; 93005; 93017; 93308; 93454; 96372; 96375; 96376; 99152; 99153; 99285; A9500; C1769; C1874; C1887; C1894; C9600; J1644; J1650; J1940; J2250; J2270; J2785; J3010; J3490; J7030; Q0163; Q9967

== ENCOUNTER → 2023-02-26 13:52 | Outpatient (BNVA) | payer MEDICARE, MEDICAID, SELFPAY | PROVIDERS: PCP Nurse Practitioner Family; Visit Provider Nurse Practitioner Family | DX: I25.10 Atherosclerotic heart disease of native coronary artery without angina pectoris (principal); I13.0 Hypertensive heart and chronic kidney disease with heart failure and stage 1 through stage 4 chronic kidney disease, or unspecified chronic kidney disease; N18.9 Chronic kidney disease, unspecified; I50.9 Heart failure, unspecified; Z87.891 Personal history of nicotine dependence | CPT/HCPCS: 36415; 80048; 83880; 99214 ==

== ENCOUNTER → 2024-07-31 10:01 | Outpatient (BNVA) | payer MEDICARE, MEDICAID, SELFPAY | PROVIDERS: PCP Nurse Practitioner Family; Referring Provider Family Medicine; Visit Provider Nurse Practitioner Family | DX: L81.4 Other melanin hyperpigmentation (principal); L82.1 Other seborrheic keratosis; L57.8 Other skin changes due to chronic exposure to nonionizing radiation; D48.5 Neoplasm of uncertain behavior of skin; L57.0 Actinic keratosis | CPT/HCPCS: 11102; 17000; 69100; 99203 ==

== ENCOUNTER → 2024-09-10 08:04 | Outpatient (BNVA) | payer MEDICARE, MEDICAID, SELFPAY | PROVIDERS: PCP Nurse Practitioner Family; Visit Provider Dermatology | DX: C44.311 Basal cell carcinoma of skin of nose (principal); C44.319 Basal cell carcinoma of skin of other parts of face; C44.222 Squamous cell carcinoma of skin of right ear and external auricular canal | CPT/HCPCS: 17311; 99213 ==

== ENCOUNTER → 2024-09-21 08:06 | Outpatient (BNVA) | payer MEDICARE, MEDICAID, SELFPAY | PROVIDERS: PCP Nurse Practitioner Family; Visit Provider Dermatology | DX: C44.311 Basal cell carcinoma of skin of nose (principal); C44.319 Basal cell carcinoma of skin of other parts of face | CPT/HCPCS: 15260; 17311 ==

== ENCOUNTER → 2024-10-05 12:35 | Outpatient (BNVA) | payer MEDICARE, MEDICAID, SELFPAY | PROVIDERS: PCP Nurse Practitioner Family; Visit Provider Dermatology | DX: C44.319 Basal cell carcinoma of skin of other parts of face (principal) | CPT/HCPCS: 99212 ==

== ENCOUNTER → 2024-10-26 10:02 | Outpatient (BNVA) | payer MEDICARE, MEDICAID, SELFPAY | PROVIDERS: PCP Nurse Practitioner Family; Visit Provider Dermatology | DX: C44.319 Basal cell carcinoma of skin of other parts of face (principal); C44.311 Basal cell carcinoma of skin of nose; L57.0 Actinic keratosis | CPT/HCPCS: 17000; 99213 ==

== ENCOUNTER → 2024-11-09 10:30 | Outpatient (BNVA) | payer MEDICARE, MEDICAID, SELFPAY | PROVIDERS: PCP Nurse Practitioner Family; Visit Provider Dermatology | DX: C44.319 Basal cell carcinoma of skin of other parts of face (principal); C44.311 Basal cell carcinoma of skin of nose; Z08 Encounter for follow-up examination after completed treatment for malignant neoplasm; Z85.828 Personal history of other malignant neoplasm of skin | CPT/HCPCS: 17000; 99213 ==